=== PATIENT | female | born 1985 | race Caucasian/White ===

== ENCOUNTER 2024-06-20 10:58 | Emergency (ER) | payer OTHER, SELFPAY ==
[2024-06-20 10:59] VITALS: PULSE 76; RESP 18; TEMP 37.2; O2SAT 100; BMI 50.1
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
[2024-06-20 11:09] VITALS: BP 111/74
[2024-06-20] MEDS: LORazepam 2 mg/mL INJ 1 mL 1 MG IVP (11:16)
[2024-06-20] MEDS: morphine 4 mg/mL SDV 1 mL IVP (11:16)
[2024-06-20 11:19] LABS: Basophils % 0.2 %; Eosinophils # 0.1 10^3/uL (0.0-0.8); Eosinophils % 1.4 %; Hematocrit 41.8 % (36-47); Lymphocytes % 19.2 %; Mean Corpuscular HGB Conc 31.6 g/dL (30-55); Mean Corpuscular Hemoglobin 25.9 pg (27-33); Mean Platelet Volume 9.3 fL (7.4-10.4); Monocytes # 0.5 10^3/uL (0.2-0.9); Monocytes % 5.2 %; Neutrophils # 7.58 10^3/uL (1.8-7.7); Neutrophils % 73.6 %; Nucleated Red Blood Cells % 0 %; Platelet Count 309 10^3/cmm (157-399); White Blood Count 10.28 10^3/uL (3.29-11.43)
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
[2024-06-20] MEDS: iohexol 350 mg/mL 500 mL Btl (per mL) IV (11:32)
[2024-06-20 11:39] LABS: Anion Gap 14.1 (5-19); Blood Urea Nitrogen 11 mg/dL (6-20); Calcium 8.5 mg/dL (8.5-10.5); Carbon Dioxide 23 mmol/L (22-29); Chloride 105 mmol/L (98-107); Creatinine Clr Calc Pharmacy 115.5417; Glomerular Filtration Rate 62.4 mL/min (90-130); Glucose 94 mg/dL (65-115); Osmolality Calculated 285 mOsm/kg (285-295); Potassium 4.1 mmol/L (3.5-5.1); Sodium 138 mmol/L (136-145)
[2024-06-20 12:10] VITALS: BP 113/79; PULSE 77; O2SAT 100
[2024-06-20] MEDS: dexamethasone 10 mg/mL INJ IVP (12:28)
[2024-06-21 13:42] LABS: Glucose Point of Care 83 mg/dL (70-110)
== END 2024-06-20 12:53 | disposition home or self-care (01) ==
PROVIDERS: Emergency Provider Emergency Medicine; Family Provider Family Medicine; PCP Family Medicine
DX: Z04.1 Encounter for examination and observation following transport accident (principal)
CPT/HCPCS: 36416; 70450; 71260; 72125; 74177; 80048; 82962; 85025; 96374; 96375; 99285; J1100; J2060; J2270

== ENCOUNTER 2025-01-06 16:20 | Outpatient (CLI) | payer MEDICAID, OTHER, SELFPAY ==
[2025-01-10 13:34] LABS: Beef (27) IgE <0.10 kU/L; Beef Class 0; Cow's Milk Classification 0; Lamb (F88) IgE <0.10 kU/L; Lamb Class 0; Pork (F26) IgE <0.10 kU/L; Pork Classification 0
[2025-01-12 07:23] LABS: Galactose-alpha-1,3 IgE <0.10 kU/L (<0.10)
== END 2025-01-06 16:21 | disposition home or self-care (01) ==
LOC: LAB 16:22
PROVIDERS: Family Provider Family Medicine; PCP Family Medicine; Visit Provider Allergy & Immunology
DX: Z01.89 Encounter for other specified special examinations (principal)
CPT/HCPCS: 82785; 83520; 86003; 86008

== ENCOUNTER 2025-02-05 04:25 | Emergency (ER) | payer MEDICARE, MEDICAID, SELFPAY ==
--- OUTSIDE RECORDS SUMMARY | 2024-01-10 03:00 | XMS_ITS ---
Author Organization [facility] Address [address] [place] [address] Care Team Providers Care Bakery Manager Name Role Phone Felisha Messina APRN Primary Care Provider Harmony Kenan Colindres Unavailable [phone] Migration, Provider Unavailable Unavailable REASON FOR VISIT EMR-[facility] Encounters Encounter Location Date Provider Diagnosis Migrated_Facility 0 0 01/10/2024 Provider Migration Plan Of Treatment No Information Progress Notes * Hawa GREEN FDOB:1985 (39 yo F)Acc No.[id number]:01/10/2024 Patient: Sultana LOWE Hawa Jairon :1985 A ge:38 Y S ex:Female Address:[address] [place] [address], [address], [place] [address] Subjective: * Chief Complaints: * E MR-[facility] * * Date:
--- OUTSIDE RECORDS SUMMARY | 2024-01-11 03:00 | XMS_ITS ---
Author Organization [facility] Address [address] [place] [address] Care Team Providers Care Oakes Machine Operator Name Role Phone Felisha Messina APRN Primary Care Provider Harmony serratomikemarita Bolanos Kenan Unavailable [phone] Migration, Provider Unavailable Unavailable Allergies Allergen (clinical drug ingredient) Drug/Non Drug Allergy documented on EMR Reaction Allergy Type Onset Date Status Abilify (ARIPiprazole) Unknown Drug Allergy Active aspirin aspirin Unknown Drug Allergy Active diphenhydramine benadryl Unknown Drug Allergy A ctive gabapentin gabapentin Unknown Drug Allergy Activ e melatonin melatonin Unknown Drug Allergy Active Topamax Sprinkle (topiramate) Unknown Drug Allergy Active Zoloft (sertraline) Unknown Drug Allergy Active hydrocodone HYDROcodone Unknown Drug Allergy Act kaiden sertraline sertraline Unknown Drug Allergy Activ e REASON FOR VISIT [facility] Social History Social History Additional Details Category Social Info Options Details Migrated Social History Migrated Social History Alcoholic beverages? - No, Applying for disability? - No, Are you or is there a chance you could be - No, Currently on disability? - No, Drug or substance abuse? - No, Education - Grade School, If yes, frequency of alcoholic beverages - 1 drink per day, If yes, frequency of nonprescription drug use - marijuana, Involved in any legal proceedings or lawsuits? - No, Marital Status - single, Nonprescription drug use? - Yes, Participation in detoxification or rehabilitation - No, Smoking - 1 PPD, Smoking status (MU) - Current every day smoker, Working currently? - Yes Encounters Encounter Location Date Provider Diagnosis Migrated_Facility 0 0 01/11/2024 Provider Migration Plan Of Treatment No Information Progress Notes * Hawa GREEN FDOB:1985 (39 yo F)Acc No.[id number]:01/11/2024 Patient: Hawa TOPETE :1985 A ge:38 Y S ex:Female Address:[address] [place] [address], [address], [place] [address] Subjective: * Chief Complaints: * E MR-Perry * Family History: M igrated Family History: : Cancer, c hronic pain, D iabetes, R heumatoid arthritis.? * Social History: M igrated Social History: M igrated Social History: Alcoholic beverages? - No, A pplying for disability? - No, A re you or is there a chance you could be - No, C urrently on disability? - No, D rug or substance abuse? - No, E ducation - Grade School, I f yes, frequency of alcoholic beverages - 1 drink per day, I f yes, frequency of nonprescription drug use - marijuana, I nvolved in any legal proceedings or lawsuits? - No, M arital Status - single, N onprescription drug use? - Yes, P articipation in detoxification or rehabilitation - No, S moking - 1 PPD, S moking status (MU) - Current every day smoker, W orking currently? - Yes. * Allergies: H YDROcodone: AllergyTopamax Sprinkle (topiramate): AllergyAbilify (ARIPiprazole): AllergyZoloft (sertraline): Allergysertraline: Allergyaspirin: Allergygabapentin: Allergymelatonin: Allergybenadryl: Allergy * * Date:
--- OUTSIDE RECORDS SUMMARY | 2024-09-02 08:30 | XMS_ITS ---
Author Organization [facility] Address [address] [place] [address] Care Team Providers Care Documentation Supervisor Name Role Phone Felisha Messina APRN Primary Care Provider Harmony amaKenan Man Unavailable [phone] Lex Sanchez Unavailable [phone] Encounters Encounter Location Date Provider Diagnosis [facility] [address] [address] 09/02/2024 Lex Sanchez Plan Of Treatment No Information Progress Notes * Hawa GREEN FDOB:1985 (39 yo F)Acc No.[id number]:09/02/2024 Patient: Hawa Wills Provider: Jazmin Sanchez M.D. :1985 A ge:39 Y S ex:Female Date:09/02/2024 Address:[address] [place] [address], [address], [id number] Pcp:Felisha Messina APRN Billing Information: * Procedure Codes: * Electronic signature of Lex Sanchez MD on 02/05/2025 at 04:37 AM SHOWER DOORS AND PANELS FABRICATOR Sign off status: Pending * Provider: Jazmin Sanchez M.D. Date: 09/02/2024 Generated for Maddie thompson/Laith/eTransmitting on: 04/07/2024 04:37 AM SHOWER DOORS AND PANELS FABRICATOR
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
[2025-02-05 04:29] VITALS: BP 118/88; PULSE 86; RESP 20; TEMP 36.6; O2SAT 97; BMI 34.4
--- NOTE | 2025-02-05 04:34 | ECG_ITS ---
Tutor Assignment Test Date: 2025-02-05 Pat Name: Hawa Michael Department: Room: Gender: Female Special Events Director: : 1985 Requested By: Juliano Toribio Order Number: [id number] Archibald MD: Dave Ashley M.D. Measurements Intervals [place] Rate: 105 P: 57 ND: 143 QRS: -1 QRSD: 77 T: 52 QT: 355 QTc: 471 Interpretive Statements SINUS TACHYCARDIA WITH FREQUENT VENTRICULAR PREMATURE COMPLEXES LOW QRS VOLTAGE IN PRECORDIAL LEADS [QRS DEFLECTION < 1.0 mV IN CHEST LEADS] ABNORMAL RHYTHM ECG No previous ECG available for comparison Electronically Signed On 02-05-2025 13:49:10 EXPERIMENTAL PREFLIGHT MECHANIC by Dave Ashley M.D. [email or web address]
--- OUTSIDE RECORDS SUMMARY | 2025-02-05 04:36 | XMS_ITS | Patient Health Record ---
Author Organization [facility] Address [address] [place] [address] Care Team Providers Care Harmonica Maker Name Role Phone Felisha Messina APRN Primary Care Provider Harmony serratoKenan Man Unavailable [phone] Lex Sanchez Unavailable [phone] Allergies Allergen (clinical drug ingredient) Drug/Non Drug [...] sertraline sertraline Unknown Drug Allergy Activ e Results Component Value Reference Range Notes Echo Complete [id number] Reviewed date:07/26/2024 12:27:41 PM Interpretation: Performing Lab: Notes/Report: Reason For Referral Reason Appt 07/09/24 Cardi ac pacemaker in situ. Diagnosis 1 Presence of cardiac pacemaker (Z95.0) Referring Provider First Name Felisha Referring Provider Last Name Siddharth Referring Provider Speciality Nurse Prac breanaioner Referred Organization [facility] Referred Provider Lex Sanchez Referred Address [address],[address], Referred Provider Specialty Intervention al Cardiology Referral Priority Routine Medications Medication SIG (Take, Route, Frequency, Duration) Notes Start Date End Date Status Famotidine 40 MG Tablet as directed Oral Twice a day; Duration: 90 Not-Taking Methocarbamol 750 MG Tablet 1 tablet Orally hs Not-Takin g Metoclopramide HCl 10 MG Tablet 1 ml before meals Orally Four times a day; Duration: 30 Not-Taking Albuterol Sulfate HFA 108 (90 Base) MCG/ACT Aerosol Solution 1 puff as needed Inhalation every 4 hrs Active Montelukast Sodium 10 MG Tablet 1 tablet Orally Once a day Not-Taking Pantoprazole Sodium 40 MG Tablet Delayed Release as directed Oral Once a day; Duration: 90 Not-Taking EpiPen 2-Chase 0.3 MG/0.3ML Solution Auto-injector as directed Injection Active Flovent HFA 110 MCG/ACT Aerosol 1 puff Inhalation Twice a day Active Immunizations Vaccine Route Administration Date Status Comme nts Influenza (whole), CPT 26861 Inactive Unknown 02/20/2017 Administered Social History Tobacco Use: Social History Observation Description Date Details (start date - stop date) Never Smoker NA - NA Social History Drugs/Alcohol: Social Info Question Answer Notes Caffeine Intake: 3-4 cups per day Tobacco Use: Social Info Question Answer Notes xTobacco Use/Smoking Are you a nonsmoker Additional Details Category Social Info Options Details Drugs/Alcohol: Do you drink alcohol? No Migrated Social History Migrated Social History Alcoholic [...] every day smoker, Working currently? - Yes zzMigrated Social History Drugs/Alcohol: (Alcohol Screen (Audit-C)):Did you have a drink containing alcohol in the past year?: No, Points: 0, Interpretation: Negative ;(Caffeine):Intake: more than 4 cups per day ; Tobacco Use: (Tobacco Use/Smoking):Are you a:: never smoker ; Problems Problem Type SNOMED Code ICD Code Onset Dates Problem Status W/U Status Risk Notes Problem Dizziness and giddiness (986381541) Dizziness and giddiness (R42) Active confirmed Problem Syncope and collapse (500826356) Syncope and collapse (R55) Active confirmed Problem Cardiac pacemaker in situ (055677828) Presence of cardiac pacemaker (Z95.0) Active confirmed Problem Obstructive sleep apnea syndrome (23754190) GIOVANY (obstructive sleep apnea) (G47.33) Active confirmed Problem Ventricular premature complex (disorder) (740297339) Premature ventricular contractions (I49.3) Active confirmed Problem Morbid obesity (059257989) Morbid obesity (E66.01) Active confirmed Problem Supraventricular premature beats (04733542) Atrial contractions, premature (I49.1) Active confirmed Problem Dilated cardiomyopathy (987950346) Dilated cardiomyopathy (I42.0) Active confirmed [id number] med Description:Con gestive obstructive cardiomyopathy Problem Orthostatic hypotension (67155048) Orthostatic hypotension (I95.1) Active confirmed [id number] med Description:Pos tural orthostatic tachycardia syndrome Problem Shortness of breath (047611752) Shortness of breath (R06.02) Active confirmed [id number] Problem Essential hypertension (50510197) Essential primary hypertension (I10) Active confirmed [id number] med Description:Ess ential hypertension Vital Signs Heart Rate 88 /min 07/09/2024 Height-cm 170.18 cm 07/09/2024 Oximetry 98 % 07/09/2024 Blood pressure diastolic 72 mm Hg 07/09/2024 Weight-kg 136.62 kg 07/09/2024 Height 67.00 in 07/09/2024 Blood pressure systolic 126 mm Hg 07/09/2024 Weight 301.2 lbs 07/09/2024 BMI 47.17 kg/m2 07/09/2024 Encounters Encounter Location Date Provider Diagnosis [facility] [address] [place] [address], [place] [address] 07/09/2024 Lex Sanchez Essential primary hypertension I10 ; Encounter for pre-operative cardiovascular clearance Z01.810 ; Morbid obesity E66.01 ; GIOVANY (obstructive sleep apnea) G47.33 and SOB (shortness of breath) R06.02 [facility] [address] [place] [address], [place] [phone] 10/19/2024 Lex Sanchez [facility] [address] [place] [address], [place] [address] 09/30/2024 Lex Sanchez [facility] [address] [place] [phone] 09/16/2024 Lex Sanchez Assessments Encounter Date Diagnosis (ICD Code) Assessment Notes Treatment Notes Treatment Clinical Notes Section Notes 07/09/2024 Essential primary hypertension (ICD-10 - I10) [id number] ed Description:Susan meyer hypertension Preoperative Cardiac Clearance - Ovarian cancer surgery. She is clear to proceed from a cardiac standpoint. RCRI risk score is low. Obstructive Sleep Apnea - On CPAP therapy. Shortness of Breath - Order echocardiogr am. Obesity - Monitor for now. Follow up in 6 months. 07/09/2024 Encounter for pre-operative cardiovascular clearance (ICD-10 - Z01.810) Preoperative Cardiac Clearance - Ovarian cancer surgery. She is clear to proceed from a cardiac standpoint. RCRI risk score is low. Obstructive Sleep Apnea - On CPAP therapy. Shortness of Breath - Order echocardiogr am. Obesity - Monitor for now. Follow up in 6 months. 07/09/2024 Morbid obesity (ICD-10 - E66.01) Preoperative Cardiac Clearance - Ovarian cancer surgery. She is clear to proceed from a cardiac standpoint. RCRI risk score is low. Obstructive Sleep Apnea - On CPAP therapy. Shortness of Breath - Order echocardiogr am. Obesity - Monitor for now. Follow up in 6 months. 07/09/2024 GIOVANY (obstructive sleep apnea) (ICD-10 - G47.33) Preoperative Cardiac Clearance - Ovarian cancer surgery. She is clear to proceed from a cardiac standpoint. RCRI risk score is low. Obstructive Sleep Apnea - On CPAP therapy. Shortness of Breath - Order echocardiogr am. Obesity - Monitor for now. Follow up in 6 months. 07/09/2024 SOB (shortness of breath) (ICD-10 - R06.02) Preoperative Cardiac Clearance - Ovarian cancer surgery. She is clear to proceed from a cardiac standpoint. RCRI risk score is low. Obstructive Sleep Apnea - On CPAP therapy. Shortness of Breath - Order echocardiogr am. Obesity - Monitor for now. Follow up in 6 months. Plan Of Treatment Pending Test Test Name Order Date Electrocardiogram (EKG) - 77309 07/10/19 Insurance Providers Payer Name Payer Address Payer Phone Subscriber Number Group Number Insured Name Patient Relationship to Insured Coverage Start Date Coverage End Date [facility] [employer] [address] [place] [address] [id number] Hawa Michael Self - patient is the insured [place] Medicaid [address] [place] [address] [phone] [id number] Hawa Michael Self - patient is the insured for Life Secondary to Medicare [address] [place] [address] [phone] [id number] Hawa Michael Self - patient is the insured [place] Medicare [address] [place] [address] [id number] Hawa Michael Self - patient is the insured 8 Medical (General) History Medical History History ICD Code PTSD ANXIETY THYROID DISORDER POSTURAL ORTHOSTATIC TACHY HYPERLIPIDEMIA ASTHMA SYNCOPE Covid Vaccination: refuses to get done Surgical History Surgery Date(Month/Year) LEG SURGERY CARDIAC CATH ED-Laparoscopic cholecyst ectomy with intraoperative cholangiogram. 08.14.2024 Hospitalization History Reason Date(Month/Year) Panic attack [facility] October 03
--- OUTSIDE RECORDS SUMMARY | 2025-02-05 04:36 | XMS_ITS | Data Portability ---
Author Organization [place], [facility] Address [address] [place] [address] Care Team Providers Care General Expeditor Name Role Phone MAISHA DANIEL Referring Provider Unavailable Assessment No assessment recorded. Plan of Treatment Reminders Order Date Submit Date Provider Last Modified By Organization Details Last Modified Time Details Appointments None recorded. Lab urinalysis , dipstick 2017 018 MARISEL Not available 8 18:07:21 Referral None recorded. Procedures None recorded. Surgeries None recorded. Imaging None recorded. Medication Orders ProAir HFA 90 mcg/actuat ion aerosol inhaler 2017 018 INTERFACE [facility] [place], [address], [place], [address], 8 16:13:15 carvedilol 3.125 mg tablet 2017 018 [email or web address] [facility] [place], [address], [place], [address], 8 17:39:46 Lexapro 20 mg tablet 2017 018 INTERFACE [facility] [place], [address], [place], [address], 8 16:13:05 Zithromax Z-Chase 250 mg tablet 2017 018 [facility] [place], [address], [place], [address], 8 15:19:42 Zofran ODT 8 mg disintegra ting tablet 2016 017 [facility] [place], [address], [place], [address], 8 15:19:51 Dulcolax (bisacodyl ) 10 mg rectal suppositor y 2016 017 [facility] [place], [address], [place], [address], 8 15:21:37 Patient TargetsNo targets recorded. Patient Instructions Encounter Date Encounter Id Patient Instructions Last Modified By Organization Details Last Modified Time 11/11/2016 [id number] constipation: ca re instructions Not available 11/11/2016 11:55:35 will cont to follow. warned pt that if she cont to take zofran it will only worsen her constipation. will give suppositories for constipation. safe in . will cont to follow and pt to call industrial relations worker phone before going to ED. WIll send records to OB. Not available 11/11/2016 14:19:06 11/26/2016 [id number] constipation: ca re instructions Not available 11/26/2016 17:44:03 WIll cont to follow. urged pt to call clinic before going to ER. Cautioned on use of zofran in . OB prescribed med and is also aware. Not available 11/26/2016 14:12:06 12/27/2016 [id number] extreme nausea a nd vomiting in : care instructions Not available 12/27/2016 13:16:39 high-risk : care instructions Not available 12/27/2016 13:16:39 will cont to follow. pt to call clinic before going to ER for anything. Pt aware and she/boyfriend both received cards with industrial relations worker phone number written. Cont meds and will monitor. I have concerns about pt and her ability to care for a Not available 12/27/2016 17:07:49 05/07/2017 [id number] high-risk : care instructions Not available 05/07/2017 21:48:30 bronchitis: care instructions Not available 05/07/2017 16:01:31 will treat bronchitis. Pt and boyfriend are low IQ and childish in behavior. Pt counseled numerous times on abusing ER and to call industrial relations worker phone prior to going to ER. Unfortunately no cooperation from them. Not available 05/07/2017 21:48:30 07/24/2017 [id number] controlling your asthma: care instructions Not available 07/24/2017 16:11:21 learning about asthma Not available 07/24/2017 16:11:21 biceps tendiniti s: exercises Not available 07/24/2017 16:11:21 When You Want to Lose Weight: Care Instructions Not available 07/24/2017 16:11:21 Reason for Referral None Reported. Results Created Date Observation Date Name Description Value Unit Range Abnormal Flag Note LastModifiedBy Organization Detail LastModifiedTime 12/26/19 17 12/23/2016 XR, chest No observ ation record ed. [address], [address], 12/25/2016 22:28:14 Result Notes None recorded. Problems Name Problem SNOMED Code Status Onset Date Resolution Date Notes Provider Name and Address Organization Details Recorded Time Candidal vulvovaginitis [id number] [place], [address], [place] - Maisha Hemal 5 12:36:09 Backache 221583970 [place], [address], [place] - Maisha Hemal 6 09:37:23 Bronchitis 92232691 [place], [address], [place] - Maisha [place] 5 12:36:09 Right lower quadrant pain 276712501 [place], [address], [place] - Maisha [place] 5 22:32:34 Tachycardia 5766491 [place], [address], [place] - Maisha Hemal 5 22:32:34 Vaginitis and vulvovaginitis [place], [address], [place] - Maisha Hemal 6 13:44:41 Edema of lower extremity 905670261 [place], [address], [place] - Maisha Hemal 6 09:37:23 Postural orthostatic tachycardia syndrome 778390604 [place], [address], [place] - Maisha [place] 6 09:37:23 Generalized anxiety disorder 64577472 [place], [address], [place] - Maisha Hemal 6 17:07:05 Macromastia 204135412 [place], [address], [place] - Maisha [place] 6 09:37:23 Palpitations 53127258 [place], [address], [place] - Maisha Hemal 5 10:25:02 Hypothyroidism 64904871 Active Eli Lo null[place] - Maisha Hemal 6 16:39:24 Depressive disorder 27450296 [place], [address], [place] - Maisha [place] 5 21:16:01 Problem Notes None recorded. Procedures Surgical History Date Name Laterality Status Provider Name and Address Organization Details Recorded Time Orthopedic Surgery completed Eli ESCALERA - Maisha Daniel 01/06/2014 14:54:06 Imaging Results None recorded. Procedure Notes None recorded. Medical Equipment None Reported. Allergies Allergen ID Allergen Name Allergen Category Reaction Reaction Severity Criticality Documentation Date Start Date Code Code System Note Provider Name and Address Organization Details Recorded Time 65188 Vaccine product containin g only influenza virus antigen (medicina l product) medicatio n Not available Not available Not available 03/30/2015 03142 57290 105 SNOMED [place] 6 15:56:18 57017 egg extract food,medi cation Not available Not available Not available 01/16/2016 14573 15 RxNorm JW Jarvis 6 11:00:59 1728 gabapenti n medicatio n Not available Not available Not available 01/06/2014 48258 RxNorm [place]W [place] 4 14:54:06 1729 hydrocodo ne Not available Not available Not available Not available 01/06/2014 5489 RxNorm [place]W [place] 4 14:54:06 1730 Topamax medicatio n Not available Not available Not available 01/06/2014 18407 3 RxNorm JW Jarvis 4 14:54:06 1731 sertralin e medicatio n Not available Not available Not available 01/06/2014 43116 RxNorm JW Jarvis 4 14:54:06 Medications Name Sig Start Date Stop Date Status Note LastModified by Organization Details LastModified Time cyclobenzap rine 10 mg tablet 07/24 completed Not Available Not Available Not Available amoxicillin 500 mg capsule 05/07 completed Not Available Not Available Not Available furosemide 40 mg tablet Take 1 tablet every day by oral route. 08/08 completed Not Available Not Available Not Available fluconazole 100 mg tablet Take 1 tablet every day by oral route. active Not Available Not Available No t Available venlafaxine ER 75 mg capsule,ext ended release 24 hr Take 1 capsule every day by oral route for 30 days. 02/05 completed Not Available Not Available Not Available ropinirole 1 mg tablet Take 1 tablet every day by oral route at bedtime. 06/03 completed Not Available Not Available Not Available ketoconazol e 2 % shampoo APPLY TO THE AFFECTED AREA(S), LATHER, LEAVE IN PLACE FOR 5 MINUTES, AND THEN RINSE OFF WITH WATER BY TOPICAL ROUTE ONCE DAILY 06/03 completed Not Available Not Available Not Available cetirizine 10 mg tablet Take 1 tablet every day by oral route. 07/24 completed Not Available Not Available Not Available azithromyci n 250 mg tablet Take 1 tablet every day by oral route as directed. 07/24 completed Not Available Not Available Not Available metoprolol tartrate 100 mg tablet Take 1 tablet twice a day by oral route. 09/27 completed Not Available Not Available Not Available fluconazole 150 mg tablet Take 1 tablet every day by oral route for 1 day. 09/27 completed Not Available Not Available Not Available Lotrisone 1 %-0.05 % topical cream APPLY TO THE AFFECTED AND SURROUNDI NG AREAS OF SKIN BY TOPICAL ROUTE 2 TIMES PER DAY IN THE MORNING AND EVENING FOR 2 WEEKS 09/27 completed Not Available Not Available Not Available sumatriptan 100 mg tablet Take 1 tablet every day by oral route as needed. 03/21 completed Not Available Not Available Not Available Keflex 500 mg capsule Take 1 capsule 3 times a day by oral route for 7 days. 12/04 completed Not Available Not Available Not Available meloxicam 15 mg tablet active Not Available Not Available Not Available ondansetron HCl 4 mg tablet 11/26 completed Not Available Not Available Not Available betamethaso ne, augmented 0.05 % topical cream 09/27 completed Not Available Not Available Not Available atenolol 25 mg tablet Take 1 tablet by oral route for 30 days. active Not Available Not Available No t Available venlafaxine ER 150 mg capsule,ext ended release 24 hr 12/04 completed Not Available Not Available Not Available metronidazo le 500 mg tablet 05/07 completed Not Available Not Available Not Available ciprofloxac in 250 mg tablet 12/27 completed Not Available Not Available Not Available prochlorper azine maleate 10 mg tablet active Not Available Not Available No t Available ciprofloxac in 500 mg tablet active Not Available Not Available Not Available sulfamethox azole 800 mg-trimetho prim 160 mg tablet active Not Available Not Available Not Available carvedilol 3.125 mg tablet Take 1 tablet twice a day by oral route as directed for 30 days. 2017 active Not Available Not Available Not Avai lable ondansetron 8 mg disintegrat ing tablet Place 1 tablet every 8 hours by transling ual route for 2 days. 07/24 completed Not Available Not Available Not Available levothyroxi ne 25 mcg tablet active Not Available Not Available Not Available dexamethaso ne 0.5 mg/5 mL oral elixir active Not Available Not Available Not Available Dulcolax (bisacodyl) 10 mg rectal suppository Insert 1 supposito ry every day by rectal route. 07/24 completed Not Available Not Available Not Available zonisamide 100 mg capsule active Not Available Not Available Not Available Tessalon Perles 100 mg capsule Take 1 capsule 3 times a day by oral route as needed. 06/03 completed Not Available Not Available Not Available famotidine 20 mg tablet Take 1 tablet twice a day by oral route. 06/03 completed Not Available Not Available Not Available lorazepam 0.5 mg tablet active Not Available Not Available Not Available Nitrostat 0.[address] 1 tablet as needed by sublingua l route. active Not Available Not Available No t Available trazodone 100 mg tablet Take 1 tablet every day by oral route at bedtime. 06/03 completed Not Available Not Available Not Available rizatriptan 10 mg disintegrat ing tablet Take 1 tablet every day by oral route as needed. 07/24 completed Not Available Not Available Not Available levothyroxi ne 50 mcg tablet Take 1 tablet every day by oral route. 08/08 completed Not Available Not Available Not Available trazodone 150 mg tablet active Not Available Not Available Not Available nitrofurant oin macrocrysta l 100 mg capsule 11/11 completed Not Available Not Available Not Available ranitidine 150 mg tablet active Not Available Not Available Not Available lisinopril 10 mg tablet active Not Available Not Available Not Available metoprolol tartrate 50 mg tablet Take 1.5 tablets twice a day by oral route. 06/18 completed Not Available Not Available Not Available folic acid 1 mg tablet 07/24 completed Not Available Not Available Not Available midodrine 2.5 mg tablet Take 1 tablet every day by oral route. active Not Available Not Available No t Available furosemide 20 mg tablet TAKE ONE TABLET BY MOUTH ONCE DAILY 12/19 completed Not Available Not Available Not Available gabapentin 100 mg capsule active Not Available Not Available Not Available polyethylen e glycol 3350 17 gram/dose oral powder active Not Available Not Available Not Available cefdinir 300 mg capsule 07/24 completed Not Available Not Available Not Available clotrimazol e 1 % topical cream 09/27 completed Not Available Not Available Not Available atenolol 50 mg tablet TAKE ONE TABLET BY MOUTH ONCE DAILY 12/04 completed Not Available Not Available Not Available amoxicillin 875 mg-potassiu m clavulanate 125 mg tablet Take 1 tablet every 12 hours by oral route for 7 days. 01/15 completed Not Available Not Available Not Available Ventolin HFA 90 mcg/actuati on aerosol inhaler Inhale 2 puffs every 4 hours by inhalatio n route as needed. active Not Available Not Available No t Available escitalopra m 20 mg tablet Take 1 tablet every day by oral route as directed for 30 days. 2017 active Not Available Not Available Not Avai lable Lexapro 10 mg tablet Take 1 tablet every day by oral route. 2017 active Not Available Not Available Not Avai lable Mucinex DM 60 mg-1,200 mg tablet,exte nded release 12 hr Take 1 tablet twice a day by oral route. 01/15 completed Not Available Not Available Not Available EpiPen 2-Chase 0.3 mg/0.3 mL injection, auto-inject or Take 1 auto every day by injection route as needed. active Not Available Not Available No t Available Linzess 145 mcg capsule active Not Available Not Available Not Available PrePlus 27 mg iron-1 mg tablet 07/24 completed Not Available Not Available Not Available Vitals Date Recorded Body height Body mass index (BMI) Body weight Heart rate Oxygen saturation Body temperature Systolic And Diastolic Provider Name and Address Organization Details Last Updated DateTime 8 170.18 cm 48.2 kg/m2 469531. 45 g 107 /min 99 % 98.3 [degF] 138/97 mm[Hg] Kya Daniel 8 14:50:48 Date Recorded Body height Body mass index (BMI) Body weight Body temperature Heart rate Oxygen saturation Systolic And Diastolic Provider Name and Address Organization Details Last Updated DateTime 8 170.18 cm 45.9 kg/m2 470714. 56 g 98.1 [degF] 85 /min 98 % 113/78 mm[Hg] Eli Goldmanibner 8 15:20:04 Date Recorded Body height Body mass index (BMI) Body weight Body temperature Heart rate Oxygen saturation Systolic And Diastolic Provider Name and Address Organization Details Last Updated DateTime 7 170.18 cm 51.2 kg/m2 346173. 7 g 98.2 [degF] 100 /min 99 % 121/83 mm[Hg] Eli Goldmanibner 7 11:23:11 Date Recorded Body height Body mass index (BMI) Body weight Body temperature Heart rate Oxygen saturation Systolic And Diastolic Provider Name and Address Organization Details Last Updated DateTime 7 170.18 cm 51.2 kg/m2 866449. 7 g 97.9 [degF] 87 /min 99 % 135/86 mm[Hg] Eli Daniel 7 10:57:33 Date Recorded Body temperature Heart rate Oxygen saturation Systolic And Diastolic Provider Name and Address Organization Details Last Updated DateTime 12/27/2016 98.6 [degF] 103 /min 98 % 123/84 mm[Hg] Eli Daniel 7 12:09:12 Date Recorded Body height Body mass index (BMI) Body weight Provider Name and Address Organization Details Last Updated DateTime 12/27/2016 170.18 cm 51 kg/m2 876313.39 g Yolanda Daniel 12/27/2016 12:02:07 Social History Question Answer Notes LastModified by Organizat ion Details LastModified Time Tobacco Smoking Status Never Smoker Not Available [employer] 01/18/2020 03:38:59 How Many Years Have You Consumed Alcohol? 0 [id number] Information not available 01/18/2020 What Is Your Level Of Caffeine Consumption? Moderate [id number] Information not available 01/18/2020 How Much Tobacco Do You Chew? None [id number] Information not available 01/18/2020 What Type Of Diet Are You Following? REGULAR [id number] Information not available 01/18/2020 How Many Days In The Past Year Have You Had A Heavy Drinking Consumption (4+ Female, 5+ Male)? 0 Information not available 03/21/2016 Are There Any Guns Present In Your Home? No [id number] Information not available 01/18/2020 Live Alone Or With Others? Alone Information not available 01/12/2015 Marital Status Single Informatio n not available 01/06/2014 What Was The Date Of Your Most Recent Tobacco Screening? 12/27/2016 [id number] Information not available 01/18/2020 How Many Children Do You Have? 0 [id number] Information not available 01/18/2020 Performs Monthly Self-breast Exam? No Information not available 01/06/2014 Seat Belts Used Routinely Yes Information not available 01/06/2014 Smoke Alarm In Home Yes Information not available 01/06/2014 Are You Passively Exposed To Smoke? Yes Information not available 01/12/2015 How Much Tobacco Do You Smoke? No [id number] Information not available 01/18/2020 Do You Use Sunscreen Routinely? No [id number] Information not available 01/18/2020 Do You Have Difficulty Walking Or Climbing Stairs? No [id number] Information not available 01/18/2020 Sex: Unknown Functional Status Question Answer Note LastModified by Organizat ion Details LastModified Time What is your level of alcohol consumption? None [id number] Information not available 01/18/2020 Are you currently employed? Yes [id number] Information not available 01/18/2020 Urinary incontinence assessment performed? Yes Information not available 03/21/2016 Do you have difficulty doing errands alone? No [id number] Information not available 01/18/2020 Are you able to care for yourself independently? Yes [id number] Information not available 01/18/2020 Do you have difficulty dressing, bathing, grooming, or toileting? No [id number] Information not available 01/18/2020 Mental Status Question Answer Note LastModified by Organization D etails LastModified Time Do you have difficulty concentrating, remembering or making decisions? No [id number] Information no t available 01/18/2020 Family History Relationship Description Onset Age of this Age Resolved Age Notes LastModified by Organization Details LastModified Time Mother Disease of liver [email or web address] Not available 2013 14:54:06 Mother Heart disease [email or web address] Not available 2013 14:54:06 Father Heart disease [email or web address] Not available 2013 14:54:06 Medical History Condition Response Heart Problems Y Gynecological History Statement/Question Response Abnormal Pap N Flow Moderate Menses Monthly Y Duration of Flow (days) 4 Date of Last Pap Smear Age at Menarche 14 Current Control Method None LMP Approximate Age at First Child Obstetrics History GPAL:G 0 P 0 0 0 0 Past Encounters Encounter ID Performer Location Encounter Start Date Encounter Closed Date Diagnosis/Indication Diagnosis SNOMED-CT Code Diagnosis ICD10 Code Diagnosis IMO Codes Diagnosis Note [id number] Maisha Daniel MD Main Office [address] [place] [id number] 01/06/2014 14:12:32 01/06/2014 15:23:55 Palpitations 10921610 Hypothyroidism 13457263 Depressive disorder 30871056 [id number] Maisha Daniel MD Main Office [address] [place] [id number] 1 02/03/2014 09:52:22 02/03/2014 11:23:06 Palpitations 81756684 cont meds and manage with cardiology Hypothyroidism 07639639 re fill med and check next apt Depressive disorder 64589247 will follow. [id number] Maisha Daniel MD Main Office [address] [place] [id number] 04/04/2014 10:57:35 04/04/2014 12:48:03 Palpitations 77846471 will cont meds for now. Hypothyroidism 75386244 Pt wants to stop thyroid med. I agreed to stopping med for 1-2 months and rechecking levels. Will follow Depressive disorder 42996184 will follow. Candidal vulvovaginitis 58412999 [id number] Maisha Daniel MD Main Office [address] [place] [id number] 1 07/12/2014 09:35:37 07/12/2014 10:37:10 Hypothyroidism 29780372 tsh and free t4 Palpitations 04835019 will cont meds for now. Backache 208530186 [id number] Maisha Daniel MD Main Office [address] [place] [id number] 01/12/2015 11:24:09 01/12/2015 12:37:27 Bronchitis 81918976 J40 Candidal vulvovaginitis 31458324 B37.3 [id number] Maisha Daniel MD Main Office [address] [place] [id number] 03/13/2015 12:38:25 03/13/2015 13:05:45 Right lower quadrant pain 068074848 R10.31 reviewed ext records and on exam i will order ct abd pelvis. pt may have ovarian cyst but could also be appendicit is. will follow Tachycardia 7233423 R00. 0 cont metoprolol . pt hesitant to take med. pt with learning obstacle [place]. [id number] Maisha Daniel MD Main Office [address] [place] [id number] 05/16/2015 10:04:23 05/16/2015 11:25:08 Vaginitis and vulvovaginitis 716855033 N77.1 pt prefers female provider for pelvic exam. will set up referral and treat in the meantime [id number] Maisha Daniel MD Main Office [address] [place] [id number] 08/21/2015 16:08:53 08/21/2015 17:09:21 Edema of lower extremity 666283703 R60.0 Postural o rthostatic tachycardia syndrome 400571075 I95.1 Generalize d anxiety disorder 98183852 F41.1 [id number] Maisha Daniel MD Main Office [address] [place] [id number] 1 09/04/2015 08:49:33 09/04/2015 09:43:49 Adult health examination 691912692 Z00.00 cbc,cmp,fl p,tsh,ua Postural o rthostatic tachycardia syndrome 886685376 I95.1 Hypothyroidism 75266951 E03.9 Edema of l ower extremity 552676007 R60.0 Backache 887685822 M54.9 Macromastia 965824108 N6 2 [id number] Maisha Daniel MD Main Office [address] [place] [id number] 10/02/2015 14:00:05 10/02/2015 15:27:54 Folliculitis 62285311 L73.9 Allergic r eaction to bee sting 314834849 T78.40XD [id number] aMisha Daniel MD Main Office [facility] [place] [address] 12/05/2015 09:21:20 12/05/2015 10:23:44 Hypothyroidism 79837322 E03.9 Postural o rthostatic tachycardia syndrome 552703313 I95.1 Restless l egs syndrome 40514061 G25.81 [id number] Maisha Daniel MD Main Office [facility] [place] [address] 12/28/2015 10:06:32 12/28/2015 10:49:39 Bronchitis 51365054 J40 Vasovagal syncope 307876 005 R55 Intellectu al functioning disability 040218144 F79 Insomnia 906757072 G47.0 0 [id number] Maisha Daniel MD Main Office [facility] [place] [id number] 01/16/2016 10:45:57 01/16/2016 11:42:07 Allergic reaction 256413806 T78.40XA Postural o rthostatic tachycardia syndrome 434204576 I95.1 Depressive disorder 3548 9007 F32.9 will follow. Edema of l ower extremity 278258626 R60.0 Hypothyroidism 53715670 E03.9 Restless l egs syndrome 80012699 G25.81 Insomnia 348936922 G47.0 0 [id number] Maisha Daniel MD Main Office [facility] [place] [id number] 02/21/2016 10:09:24 02/21/2016 11:06:36 Postural orthostatic tachycardia syndrome 369627126 I95.1 Depressive disorder 3548 9007 F32.9 will follow. Morbid obesity 281690810 E66.01 Migraine 36431619 G43.90 9 [id number] Maisha Daniel MD Main Office [facility] [place] [id number] 1 03/21/2016 10:22:22 03/21/2016 11:39:50 Migraine 35807085 G43.909 Postural o rthostatic tachycardia syndrome 613051716 I95.1 [id number] Maisha Daniel MD Main Office [facility] [place] [id number] 1 04/22/2016 09:57:56 04/22/2016 12:05:42 Bronchitis 86005475 J40 Seborrheic dermatitis of scalp 708220718 L21.0 [id number] Maisha Daniel MD Main Office [facility] [place] [id number] 1 06/03/2016 08:55:06 06/03/2016 09:45:52 Postural orthostatic tachycardia syndrome 266091480 I95.1 Hypothyroidism 76432676 E03.9 Restless l egs syndrome 03512329 G25.81 stop trazadone and requip [id number] Maisha Daniel MD Main Office [facility] [place] [id number] 08/08/2016 10:03:55 08/08/2016 11:33:17 Postural orthostatic tachycardia syndrome 402342045 I95.1 Depressive disorder 3548 9007 F32.9 Generalize d anxiety disorder 65677723 F41.1 Morbid obesity 217395716 E66.01 [id number] Maisha Daniel MD Main Office [facility] [place] [id number] 1 08/27/2016 09:11:30 08/27/2016 09:59:12 Contact dermatitis caused by urushiol from [facility] luc 841609005 L25.5 Candidiasis of vagina 72 298930 B37.3 Postural o rthostatic tachycardia syndrome 945374620 I95.1 [id number] Maisha Daniel MD Main Office [facility] [place] [id number] 1 09/27/2016 10:08:43 09/27/2016 11:35:05 Intrauterine 32431269 Z34.90 Mental retardation 20454 005 F79 Postural o rthostatic tachycardia syndrome 742420823 I95.1 [id number] Maisha Daniel MD Main Office [facility] [place] [id number] 11/11/2016 11:13:50 11/11/2016 11:58:49 Hyperemesis [id number] R11.10 Constipation 36105386 K5 9.00 [id number] Maisha Daniel MD Main Office [facility] [place]ILL [address] 1 11/26/2016 10:48:20 11/26/2016 12:13:59 Hyperemesis [id number] R11.10 Constipation [id number] K5 9.00 [id number] Maisha Daniel MD Main Office [facility] [place] [address]432 1 12/27/2016 11:29:07 12/27/2016 13:15:58 Hyperemesis gravidarum 71014446 O21.0 Postural o rthostatic tachycardia syndrome 114647328 I95.1 High risk 4720 0007 O09.92 [id number] Maisha Daniel MD Main Office [facility] [place] [address] 05/07/2017 14:37:42 05/07/2017 16:07:42 Bronchitis 29623338 J40 High risk 4720 0007 O09.92 [id number] Maisha Daniel MD Main Office [facility] [place] [address] 1 07/24/2017 15:16:32 07/24/2017 16:16:08 Postural orthostatic tachycardia syndrome 058899792 I95.1 Cardiomyopathy 19962618 I42.9 Biceps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
--- OUTSIDE RECORDS SUMMARY | 2025-02-05 04:36 | XMS_ITS | Encounter Summary ---
Author Organization [facility] Address [address] [place] [address] Care Team Providers Care Patrol Sergeant Sheriff'[employer] Name Role Phone Unavailable Primary Care Provider Unavailabl e Reason for Referral * EVAL & TREAT (Routine) - Authorized Specialty Diagnoses / Procedures Referred By Adele rankin Referred To Contact Obstetrics and Gynecology Diagnoses Benign neoplasm of left ovary Neida Alfaro MD [address] [place] [address] [address] [place], [place] [id number] Phone: tel:[phone] fax: [facility] [address] [place] [address], [place] [address] Phone: tel: fax: Referral ID Status Reason Start Date Expiration Date Visits Requested Visits Authorized [id number] Authorized Specialty Services Required 07/08/2024 07/08/2025 1 1 Question Answer Is this OB or UNCRATER? UNCRATER Additional Details: Well Woman/Preventative Health Encounter Details Date Type Department Care Team (Latest Contact Info) Description 07/08/2024 Order Director [place] [address] Neida Alfaro MD [address] [place] [address] [address] [place], [place] [phone] Benign neoplasm of left ovary (Primary Dx) Social History Tobacco Use Types Packs/Day Years Used Date Smoking Tobacco: Never Smokeless Tobacco: Never Alcohol Use Standard Drinks/Week Comments No 0 (1 standard drink = 0.6 oz pur e alcohol) Comments Unknown Sex and Gender Information Value Date Recorded Sex Assigned at Not on file Legal Sex Female 5:42 PM CDT Gender Identity Not on file Sexual Orientation Not on file documented as of this encounter Plan of Treatment Scheduled Referrals Name Type Priority Associated Diagnoses Order Schedule Ambulatory Referral to Skilled Nursing Facilities Professional Outpatient Referral Routine Benign neoplasm of left ovary 1 Occurrences starting 07/08/2024 until 07/08/2025 documented as of this encounter Visit Diagnoses Diagnosis Benign neoplasm of left ovary- Primary documented in this encounter
--- OUTSIDE RECORDS SUMMARY | 2025-02-05 04:36 | XMS_ITS | Encounter Summary ---
Author Organization [facility] Address [address] [place] [address] Care Team Providers Care Administrative Office Assistant Name Role Phone Unavailable Primary Care Provider Unavailabl e Encounter Details Date Type Department Care Team (Late st Contact Info) Description 01/14/2022 [place] [address] Yoko Tan MD [address] [place] [address] Social History Tobacco Use Types Packs/Day Years [...] as of this encounter Plan of Treatment Not on file documented as of this encounter Visit Diagnoses Not on filedocumented in this encounter
--- OUTSIDE RECORDS SUMMARY | 2025-02-05 04:36 | XMS_ITS | Encounter Summary ---
Author Organization [facility] Address [address] [place] [address] Care Team Providers Care Radio Operator Name Role Phone Unavailable Primary Care Provider Unavailabl e Encounter Details Date Type Department Care Team (Late st Contact Info) Description 11/28/2022 Order [place] [address] Yoko Tan MD [address] [place] [address] Social History Tobacco Use Types Packs/Day Years [...]
--- OUTSIDE RECORDS SUMMARY | 2025-02-05 04:36 | XMS_ITS | Data Portability ---
Author Organization [facility], [facility] Address [address] [place] [address] Assessment No assessment recorded. Plan of Treatment Reminders Order Date Submit Date Provider Last Modified By Organization Details Last Modified Time Details Appointments None recorded. Lab HbA1c (hemoglobin A1c), blood 2024 025 [facility] [address] [place], [address], 5 17:18:05 insulin, serum 2024 025 [facility] [address] [place], [address], 5 17:23:01 C-peptide, serum 2024 025 [facility] [address] [place], [address], 5 17:17:48 iron + total iron-bindin g capacity (TIBC), serum 2024 025 MAGDA [facility] [address] [place], [address], 5 17:20:31 CBC w/ auto diff 2024 025 MAG[facility] [address] [place], [address], 5 17:20:34 lipid panel, serum 2024 025 MAG[facility] [address] [place], [address], 5 17:20:31 vitamin D, 25-hydroxy, total, serum 2024 025 [facility] [address] [place], [address], 5 17:20:33 unlisted lab - MARQUISE superset w/rfx (ena9) 2024 025 [facility] [address] [place], [address], 5 17:20:29 ESR (erythrocyt e sedimentati on rate), blood 2024 025 [place] [facility] [address] [place], [address], 5 17:20:35 C-reactive protein, quantitativ e, serum or plasma 2024 025 [place] [facility] [address] [place], [address], 5 17:20:32 rf (rheumatoid factor), serum 2024 025 [facility] [address] [place], [address], 5 17:20:33 CMP, serum or plasma 2024 025 [place] [facility] [address] [place], [address], 5 17:20:30 Referral None recorded. Procedures None recorded. Surgeries None recorded. Imaging None recorded. Medication Orders Bactrim DS 800 mg-160 mg tablet 2024 025 [facility], [address] [place], [address], 16:04:07 diclofenac sodium 75 mg tablet,vandana yed release 2024 025 [facility], [address] [place], [address], 12:30:28 Patient TargetsNo targets recorded. Patient Instructions Encounter Date Encounter Id Patient Instructions Last Modified By Organization Details Last Modified Time 04/22/2024 [id number] Patient discharged to self to home in stable condition. Follow up instructions given. [email or web address] Not available 04/23/2024 13:55:09 05/06/2024 [id number] Patient discharged to self to home in stable condition. Follow up instructions given. [email or web address] Not available 05/06/2024 14:16:12 06/30/2024 [id number] Patient discharged to self to home in stable condition. Follow up instructions given. [email or web address] Not available 07/02/2024 13:41:01 09/03/2024 [id number] Patient discharged to self to home in stable condition. Follow up instructions given. Not available 09/03/2024 15:16:24 10/26/2024 [id number] Patient discharged to self to home in stable condition. Follow up instructions given. [email or web address] Not available 10/26/2024 10:47:46 Reason for Referral None Reported. Results Created Date Observation Date Name Description Value Unit Range Abnormal Flag Note LastModifiedBy Organization Detail LastModifiedTime 10/27/1910/27/2024 MARQUISE SUPER SET W/RFX (ENA9 ) anti-nuclear antibodies Positi ve negati ve abnormal Not Available [facility] [address] [place], [address], 10/29/2024 17:20:29 10/27/19 25 10/27/2024 MARQUISE SUPER SET W/RFX (ENA9 ) MARQUISE patterns (reported titer) See Below Not Available [facility] [address], [place], [address], 10/29/2024 17:20:29 10/27/19 25 10/27/2024 MARQUISE SUPER SET W/RFX (ENA9 ) dense fine speckled 1:320 negati ve abnormal Comme nt for ANTI NUCLE AR ABS Scree n and titer perfo rmed by HEp-2 immun ofluo resce nce. Not Available [facility] [address], [place], [address], 10/29/2024 17:20:29 10/27/19 25 10/27/2024 COMP METAB OLIC PANEL sodium 137 mEq/L 135-14 6 Not Available [facility] [address] [place], [address], 10/29/2024 17:20:30 10/27/19 25 10/27/2024 COMP METAB OLIC PANEL potassium 5.1 mEq/L 3.5-5. 4 Not Available [facility] [address] [place], [address], 10/29/2024 17:20:30 10/27/19 25 10/27/2024 COMP METAB OLIC PANEL chloride 103 mEq/L 95-107 Not Available [facility] [address] [place], [address], 10/29/2024 17:20:30 10/27/19 25 10/27/2024 COMP METAB OLIC PANEL carbon dioxide 21 mEq/L 19-31 Not Available [facility] [address] [place], [address], 10/29/2024 17:20:30 10/27/19 25 10/27/2024 COMP METAB OLIC PANEL anion gap 13 mEq/L 7-23 Not Available [facility] [address] [place], [address], 10/29/2024 17:20:30 10/27/19 25 10/27/2024 COMP METAB OLIC PANEL glucose non-fasting 92 mg/dL 70-139 Not Available [facility] [address] [place], [address], 10/29/2024 17:20:30 10/27/19 25 10/27/2024 COMP METAB OLIC PANEL urea nitrogen (BUN) 13 mg/dL 6-20 Not Available [facility] [address] [place], [address], 10/29/2024 17:20:30 10/27/19 25 10/27/2024 COMP METAB OLIC PANEL creatinine 1.08 mg/dL 0.60-1 .30 Not Available [facility] [address] [place], [address], 10/29/2024 17:20:30 10/27/19 25 10/27/2024 COMP METAB OLIC PANEL 2020 CKD-epi eGFR-cr 68 mL/mi n/1.7 3m'2 >59 Not Available [facility] [address] [place], [address], 10/29/2024 17:20:30 10/27/19 25 10/27/2024 COMP METAB OLIC PANEL BUN/creatini ne ratio 12 ratio Not Available [facility] [address] [place], [address], 10/29/2024 17:20:30 10/27/19 25 10/27/2024 COMP METAB OLIC PANEL calcium total 9.0 mg/dL 8.5-10 .5 Not Available [facility] [address] [place], [address], 10/29/2024 17:20:30 10/27/19 25 10/27/2024 COMP METAB OLIC PANEL protein total 6.8 g/dL 6.1-8. 3 Not Available [facility] [address] [place], [address], 10/29/2024 17:20:30 10/27/19 25 10/27/2024 COMP METAB OLIC PANEL albumin 4.0 g/dL 3.5-5. 2 Not Available [facility] [address] [place], [address], 10/29/2024 17:20:30 10/27/19 25 10/27/2024 COMP METAB OLIC PANEL globulin 2.8 g/dL 1.7-4. 3 Not Available [facility] [address] [place], [address], 10/29/2024 17:20:30 10/27/19 25 10/27/2024 COMP METAB OLIC PANEL A/G ratio 1.4 ratio 0.9-2. 8 Not Available [facility] [address] [place], [address], 10/29/2024 17:20:30 10/27/19 25 10/27/2024 COMP METAB OLIC PANEL bilirubin total 0.4 mg/dL 0.0-1. 2 Not Available [facility] [address] [place], [address], 10/29/2024 17:20:30 10/27/19 25 10/27/2024 COMP METAB OLIC PANEL alkaline phosphatase 80 U/L 40-112 Not Available [facility] [address] [place], [address], 10/29/2024 17:20:30 10/27/19 25 10/27/2024 COMP METAB OLIC PANEL AST (SGOT) 15 U/L 9-40 Not Available [facility] [address], [place], [address], 10/29/2024 17:20:30 10/27/19 25 10/27/2024 COMP METAB OLIC PANEL ALT (SGPT) 18 U/L 5-40 Not Available [facility] [address], [place], [address], 10/29/2024 17:20:30 10/27/19 25 10/27/2024 LIPID PROFI LE cholesterol 89 mg/dL <200 Not Available [facility] [address], [place], [address], 10/29/2024 17:20:31 10/27/19 25 10/27/2024 LIPID PROFI LE triglyceride s 62 mg/dL 0-149 Not Available [facility] [address] [place], [address], 10/29/2024 17:20:31 10/27/19 25 10/27/2024 LIPID PROFI LE HDL cholesterol 47 mg/dL >39 Not Available [facility] [address] [place], [address], 10/29/2024 17:20:31 10/27/19 25 10/27/2024 LIPID PROFI LE LDL cholesterol 28 mg/dL <100 Not Available [facility] [address] [place], [address], 10/29/2024 17:20:31 10/27/19 25 10/27/2024 LIPID PROFI LE non HDL cholesterol 42 mg/dL <130 Not Available [facility] [address] [place], [address], 10/29/2024 17:20:31 10/27/19 25 10/27/2024 LIPID PROFI LE coronary risk ratio 1.89 <4.44 Comme nt for LIPID PROFI LE Non-H DL Kaylin stero l is a jad r indic ator for cardi ovasc ular risk than LDL-C holes terol for patie nts who have incre ased trigl yceri radha or are non-f astin g. Non-H DL Kaylin stero l: < 130 mg/dL (Opti mal) < 160 mg/dL (Near Optim al/Ab ove Optim al) LDL Kaylin stero l: < 100 mg/dL (Opti mal) < 130 mg/dL (Near Optim al/Ab ove Optim al) Coron jenna Risk Ratio : Carroll ge for femal es < 4.44 Not Available [facility] [address] [place], [address], 10/29/2024 17:20:31 10/27/19 25 10/27/2024 IRON AND TIBC iron 41 ug/dL 37-145 Not Available [facility] [address] [place], [address], 10/29/2024 17:20:31 10/27/19 25 10/27/2024 IRON AND TIBC total iron binding 338 ug/dL 250-40 0 Not Available [facility] [address] [place], [address], 10/29/2024 17:20:31 10/27/19 25 10/27/2024 IRON AND TIBC % saturation 12 % 20-50 low Not Available [facility] [address] [place], [address], 10/29/2024 17:20:31 10/27/19 25 10/27/2024 C-KANWAL CTIVE PROTE IN C-reactive protein 1.7 mg/dL <0.5 high Not Available [facility] [address] [facility] [place], [address], 10/29/2024 17:20:32 10/27/19 25 10/27/2024 VITAM IN D 25 HYDRO XY vitamin D 25-oh 22 NG/mL 30-100 low Comme nt for VITAM IN D 25 HYDRO XY Pedia tric (< 17 Years ): 20 - 100 ng/mL Adult s: Insuf ficie nt: < 20 ng/mL Subop timal : 20 - 29 ng/mL Optim al: 30 - 100 ng/mL Not Available [facility] [address] [facility] [place], [address], 10/29/2024 17:20:33 10/27/19 25 10/27/2024 RHEUM ATOID FACTO R rheumatoid factor <10 IU/mL <14 Not Available [facility] [address] [facility] [place], [address], 10/29/2024 17:20:33 10/27/19 25 10/29/2024 AALIYAH PANEL 9 dsdna antibody 8 IU/mL 0-4 high Not Available [facility] [address] [facility] [place], [address], 10/29/2024 17:20:34 10/27/19 25 10/29/2024 AALIYAH PANEL 9 title i math tutor antibody 0.2 ai 0.0-0. 9 Not Available [facility] [address] [facility] [place], [address], 10/29/2024 17:20:34 10/27/19 25 10/29/2024 AALIYAH PANEL 9 ssa antibody <0.2 ai 0.0-0. 9 Not Available [facility] [address] [facility] [place], [address], 10/29/2024 17:20:34 10/27/19 25 10/29/2024 AALIYAH PANEL 9 ssb antibody <0.2 ai 0.0-0. 9 Not Available [facility] [address] [place], [address], 10/29/2024 17:20:34 10/27/19 25 10/29/2024 AALIYAH PANEL 9 scl-70 antibody <0.2 ai 0.0-0. 9 Not Available [facility] [address] [place], [address], 10/29/2024 17:20:34 10/27/19 25 10/29/2024 AALIYAH PANEL 9 sm antibody <0.2 ai 0.0-0. 9 Not Available [facility] [address] [place], [address], 10/29/2024 17:20:34 10/27/19 25 10/29/2024 AALIYAH PANEL 9 centromere B Ab <0.2 ai 0.0-0. 9 Not Available [facility] [address] [place], [address], 10/29/2024 17:20:34 10/27/19 25 10/29/2024 AALIYAH PANEL 9 chromatin Ab IgG <0.2 ai 0.0-0. 9 Not Available [facility] [address] [place], [address], 10/29/2024 17:20:34 10/27/19 25 10/29/2024 AALIYAH PANEL 9 enrique-1 antibody <0.2 ai 0.0-0. 9 Comme nt for AALIYAH PANEL 9 Inter preti ve Range dsDNA : Negat kaiden: 0 - 4 IU/mL Indet ermin ate: 5 - 9 IU/mL Posit kaiden: >= 10 IU/mL Not Available [facility] [address] [place], [address], 10/29/2024 17:20:34 10/27/19 25 10/27/2024 CBC WITH DIFFE RENTI AL WBC 8.2 K/uL 4.0-11 .0 Not Available [facility] [address] [place], [address], 10/29/2024 17:20:34 10/27/19 25 10/27/2024 CBC WITH DIFFE RENTI AL RBC 5.20 M/uL 4.00-5 .50 Not Available [facility] [address] [place], [place], [address], 10/29/2024 17:20:34 10/27/19 25 10/27/2024 CBC WITH DIFFE RENTI AL hemoglobin 13.7 g/dL 12.0-1 6.0 Not Available [facility] [address] [place], [place], [address], 10/29/2024 17:20:34 10/27/19 25 10/27/2024 CBC WITH DIFFE RENTI AL hematocrit 44.0 % 36.0-4 8.0 Not Available [facility] [address] [place], [address], 10/29/2024 17:20:34 10/27/19 25 10/27/2024 CBC WITH DIFFE RENTI AL MCV 84.6 fL 78.0-1 02.0 Not Available [facility] [address] [place], [address], 10/29/2024 17:20:34 10/27/19 25 10/27/2024 CBC WITH DIFFE RENTI AL MCH 26.3 pg 25.0-3 5.0 Not Available [facility] [address] [place], [address], 10/29/2024 17:20:34 10/27/19 25 10/27/2024 CBC WITH DIFFE RENTI AL MCHC 31.1 g/dL 30.0-3 8.0 Not Available [facility] [address], [place], [address], 10/29/2024 17:20:34 10/27/19 25 10/27/2024 CBC WITH DIFFE RENTI AL RDW 14.1 % 11.5-1 6.0 Not Available [facility] [address], [place], [address], 10/29/2024 17:20:34 10/27/19 25 10/27/2024 CBC WITH DIFFE RENTI AL platelet count 311 K/uL 150-45 0 Not Available [facility] [address], [place], [address], 10/29/2024 17:20:34 10/27/19 25 10/27/2024 CBC WITH DIFFE RENTI AL abs neutrophils 5.3 K/uL 1.8-7. 0 Not Available [facility] [address], [place], [address], 10/29/2024 17:20:34 10/27/19 25 10/27/2024 CBC WITH DIFFE RENTI AL abs lymphocytes 2.0 K/uL 1.0-4. 0 Not Available [facility] [address], [place], [address], 10/29/2024 17:20:34 10/27/19 25 10/27/2024 CBC WITH DIFFE RENTI AL abs monocytes 0.6 K/uL 0.1-1. 1 Not Available [facility] [address], [place], [address], 10/29/2024 17:20:34 10/27/19 25 10/27/2024 CBC WITH DIFFE RENTI AL abs eosinophils 0.3 K/uL 0.0-0. 5 Not Available [facility] [address] [place], [address], 10/29/2024 17:20:34 10/27/19 25 10/27/2024 CBC WITH DIFFE RENTI AL abs basophils 0.0 K/uL 0.0-0. 3 Not Available [facility] [address] [place], [address], 10/29/2024 17:20:34 10/27/19 25 10/27/2024 CBC WITH DIFFE RENTI AL abs immature grans 0.0 K/uL 0.0-0. 1 Not Available [facility] [address] [place], [address], 10/29/2024 17:20:34 10/27/19 25 10/27/2024 CBC WITH DIFFE RENTI AL neutrophils 64.2 % Not Available [facility] [address] [place], [address], 10/29/2024 17:20:34 10/27/19 25 10/27/2024 CBC WITH DIFFE RENTI AL lymphocytes 23.8 % Not Available [facility] [address] [place], [address], 10/29/2024 17:20:34 10/27/19 25 10/27/2024 CBC WITH DIFFE RENTI AL monocytes 6.8 % Not Available [facility] [address] [place], [address], 10/29/2024 17:20:34 10/27/19 25 10/27/2024 CBC WITH DIFFE RENTI AL eosinophils 4.2 % Not Available [facility] [address] [place], [address], 10/29/2024 17:20:34 10/27/19 25 10/27/2024 CBC WITH DIFFE RENTI AL basophils 0.5 % Not Available [facility] [address] [place], [address], 10/29/2024 17:20:34 10/27/19 25 10/27/2024 CBC WITH DIFFE RENTI AL immature grans 0.5 % Not Available [facility] [address] [place], [address], 10/29/2024 17:20:34 10/27/19 25 10/27/2024 CBC WITH DIFFE RENTI AL nucleated RBCs <1.0 /100_ WBCs <1 Not Available [facility] [address] [place], [address], 10/29/2024 17:20:34 10/27/19 25 10/27/2024 SED RATE (ESR) sedimentatio n rate 28 mm/HR <20 high Not Available [facility] [address] [facility] [place], [address], 10/29/2024 17:20:35 04/15/19 25 04/15/2024 XR, cervi imelda spine , 2 or 3 view No observ ation record ed. [address] [place], [address], 04/21/2024 13:47:50 Result Notes None recorded. Problems Name Problem SNOMED Code Status Onset Date Resolution Date Notes Provider Name and Address Organization Details Recorded Time Hypoglyce opal 281914416 Active 2023 Norma lee [facility] 14:47:41 Congestiv e heart failure 22383301 Active 2023 Norma lee [facility] 14:47:54 Pain of multiple joints 24887766 Active 2023 JAYSON TELLO N, ISOTOPE TECHNOLOGIST [address], [place], [address], [place] [facility] 5 10:45:57 Cardiac pacemaker in situ 265434148 Active 2023 JAYSON TELLO N, ISOTOPE TECHNOLOGIST [address], [place], [address], [place] [facility] 4 15:23:10 Iron deficienc y anemia 76457311 Active 2023 JAYSON TELLO N, ISOTOPE TECHNOLOGIST [address], [place], [address], [place] [facility] 4 13:52:09 Allergic reaction to bee sting 592993453 Active 2023 JAYSON TELLO N, ISOTOPE TECHNOLOGIST [address], [place], [address], [place] [facility] 4 13:53:16 Iron deficienc y 04689110 Active 2023 JAYSON TELLO N, ISOTOPE TECHNOLOGIST [address], [place], [address], [place] [facility] 4 11:14:21 Gastroeso phageal reflux disease without esophagit is 855309354 Active 2023 JAYSON TELLO N, ISOTOPE TECHNOLOGIST [address], [place], [address], [place] [facility] 4 13:35:52 Cardiomyo rosaura 26788036 Active 2023 JAYSON TELLO N, ISOTOPE TECHNOLOGIST [address], [place], [address], [facility] - [facility] 4 13:36:58 Supravent ricular tachycard ia 2478046 Active 2023 JAYSON TELLO N, ISOTOPE TECHNOLOGIST [address], [place], [address], [facility] - [facility] 4 13:37:36 Biliary sludge 33703138 Active 2023 JAYSON RICHARDSO N, ISOTOPE TECHNOLOGIST [address], [place], [address], [facility] 4 11:38:58 Acute bronchiti s 74590076 Completed 202310/26/2024 JAYSON RICHARDSO N, ISOTOPE TECHNOLOGIST [address], [place], [address], [facility] 5 10:35:52 Anterior knee pain 667113596 Active 2023 JAYSON RICHARDSO N, ISOTOPE TECHNOLOGIST [address], [place], [address], [facility] 4 11:40:01 Morbid obesity 448297853 Active 2023 JAYSON RICHARDSO N, ISOTOPE TECHNOLOGIST [address], [place], [address], [facility] 4 09:19:52 Vitamin D deficienc y 84660820 Active 2023 JAYSON RICHARDSO N, ISOTOPE TECHNOLOGIST [address], [place], [address], [facility] 4 11:13:38 Liver enzymes level above reference range 491060848 Active 2023 JAYSON RICHARDSO N, ISOTOPE TECHNOLOGIST [address], [place], [address], [facility] 4 11:13:40 Anti-nucl ear factor detected 012141380 Active 2023 JAYSON RICHARDSO N, ISOTOPE TECHNOLOGIST [address], [place], [address], [facility] 4 15:56:51 Cervical intraepit helial neoplasia grade 2 910148759 Active 2023 JAYSON RICHARDSO N, ISOTOPE TECHNOLOGIST [address], [place], [address], [facility] 4 16:00:49 Low back pain co-occurr ent with neuralgia of left sciatic nerve 427050519829 77144 Active 2023 JAYSON Vaughn APRN [address], [place], [address], [facility] 4 10:43:42 Pain of left knee joint 948696749952 107 Active 2023 [address]IE CORTEZ [address], [place], [address], [facility] 4 11:00:17 Ankle pain 388508090 Active 2023 [address] CORTEZ [address], [place], [address], [facility] 4 11:00:36 Ankle pain 044520549 Active 2023 ASHLIE CORTEZ [address], [place], [address], [facility] 4 11:01:19 Allergic rhinitis caused by animal dander 587991078 Active 2024 JAYSON Vaughn APRN [address], [place], [address], [facility] 5 10:16:27 Teratoma of ovary 297365141 Active 2024 JAYSON Vaughn APRN [address], [place], [address], [facility] 5 13:40:12 Talipes planus 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 Procedures Surgical History Date Name Laterality Status Provider Name and Address Organization Details Recorded Time 08/15/19 24 cholecystectomy completed JAYSON MENDOZA APRN [address], [place], [address], [facility] 08/20/2023 14:32:59 Imaging Results None recorded. Procedure Notes None recorded. Medical Equipment None Reported. Allergies Allergen ID Allergen Name Allergen Category Reaction Reaction Severity Criticality Documentation Date Start Date Code Code System Note Provider Name and Address Organization Details Recorded Time [id number] gabapenti n medicatio n anaphylax is Not available Not available 08/20/2023 12622 RxNorm JAYSON TELLO N, ISOTOPE TECHNOLOGIST [address], [place], [address], [facility] 4 14:53:12 [id number] hydrocodo ne Not available anaphylax is Not available [facility] 11/27/2023 5489 RxNorm Norma Prem null, [facility] 4 12:57:53 955274 Abilify medicatio n anaphylax is Not available [facility] 11/27/2023 86959 3 RxNorm Norma Prem null, [facility] 4 12:58:09 [id number] Topamax medicatio n other Not available [facility] 11/27/2023 46875 3 RxNorm patie nt repor ts stop breat [facility] 12:58:47 [id number] Zoloft medicatio n dyspnea Not available [facility] 11/27/2023 00352 RxNorm Norma Prem null, [facility] 4 12:59:25 213654 aspirin medicatio n anaphylax is Not available [facility] 11/27/2023 1191 RxNorm Norma Prem null, [facility] 4 12:59:44 [id number] acetamino phen / dextromet horphan / doxylamin e / pseudoeph edrine medicatio n dyspnea Not available [facility] 11/27/2023 75960 4 RxNorm Norma Prem null, [facility] 4 13:00:00 [id number] Tylenol medicatio n arthralgi a (joint pain) dyspnea Not available Not available [facility] 11/27/2023 77775 3 RxNorm Norma Amaro null, [facility] 4 13:00:46 073939 melatonin medicatio n dyspnea Not available [facility] 11/27/2023 6711 RxNorm Norma Amaro null, [facility] 4 13:01:42 528389 cat dander environme nt anaphylax is Not available [facility] 11/27/2023 Norma Amaro null, [facility] 4 13:04:57 710690 onion extract food,medi cation anaphylax is Not available [facility] 11/27/2023 13477 69 RxNorm Norma Prem null, [facility] 4 13:05:26 418679 diphenhyd ramine medicatio n Not available Not available Not available 02/03/2025 3498 RxNorm Not Available [employer] [facility] [employer] - prod 5 13:29:09 [id number] sertralin e medicatio n Not available Not available Not available 02/03/2025 43611 RxNorm Not Available [employer] [facility] [employer] - prod 5 13:29:09 [id number] honey bee venom environme nt Not available Not available Not available 02/03/2025 02632 7 RxNorm Not Available [employer] [facility] [employer] - prod 5 13:29:19 [id number] Ozempic medicatio n vomiting Not available Not available 02/03/2025 51822 07 RxNorm Not Available [employer] [facility] [employer] - prod 5 13:29:19 [id number] corn syrup food vomiting Not available Not available 02/03/2025 57022 76 RxNorm Not Available [employer] [facility] [employer] - prod 5 13:29:19 280213 poison luc extract environme nt Not available Not available Not available 02/03/2025 89070 6 RxNorm Not Available magda - External Data Service - prod 5 13:29:19 640100 Toxicoden dron vernix leafy twig extract Not available Not available Not available Not available 02/03/2025 03047 61 RxNorm Not Available magda [employer] External Data Service - prod 5 13:29:19 172929 bisoprolo l Not available bradycard ia Not available Not available 02/03/2025 30429 RxNorm Not Available magda - External Data Service - prod 5 13:29:19 358708 peanut oil food,medi cation angioedem a moderate Not available 02/03/2025 72238 RxNorm Not Available magda - External Data Service - prod 5 13:29:19 118353 aripipraz ole medicatio n Not available Not available Not available 02/03/20252016 60987 RxNorm Not Available mag[employer] - External Data Service - prod 5 13:30:06 682353 topiramat e medicatio n Not available Not available Not available 02/03/20252016 19493 RxNorm Not Available mag[employer] - External Data Service - prod 5 13:30:06 249396 Vaccine product containin g only influenza virus antigen (medicina l product) medicatio n Not available Not available Not available 02/03/2025 30835 13351 105 SNOMED Not Available [employer] - External Data Service - prod 5 13:30:59 75293 Benadryl medicatio n anaphylax is Not available high 06/19/2023 76705 7 RxNorm Norma Rochelle null, [facility] 4 14:37:48 29935 egg extract food,medi cation fever Not available low 06/19/2023 77971 15 RxNorm Norma Rochelle null, [facility] 4 14:39:43 95561 wasp venoms environme nt anaphylax is Not available high 06/19/2023 86118 RxNorm Norma Rochelle null, [facility] 15:05:42 Medications Name Sig Start Date Stop Date Status Note LastModified by Organization Details LastModified Time methocarb estela 500 mg tablet TAKE 2 TABLETS BY MOUTH, 4 TIMES DAILY FOR MUSCLE SPASMS. 06/18 completed Not Available Not Available Not Available tizanidin e 4 mg tablet Take 1 tablet every 12 hours by oral route as needed for 7 days, for muscle spasms. 09/16 completed stopped medicati on due to increase d nausea Not Available Not Available Not Available cimetidin e 400 mg tablet TAKE 2 Tablets BY MOUTH ONCE DAILY FOR stomach 07/07 completed Not Available Not Available Not Available prednison e 20 mg tablet Take 2 tablets every day by oral route with meal(s) for 5 days, for bronchit is. 08/19 completed Not Available Not Available Not Available sulfameth oxazole 800 mg-trimet hoprim 160 mg tablet Take 1 tablet every 12 hours by oral route with meal(s) for 7 days. 06/30 completed Not Available Not Available Not Available ketorolac 10 mg tablet TAKE 1 Tablet BY MOUTH EVERY 6 HOURS NEEDED FOR PAIN 06/18 completed Not Available Not Available Not Available cephalexi n 500 mg capsule TAKE 1 Capsule BY MOUTH EVERY 8 HOURS UNTIL GONE. 06/18 completed Not Available Not Available Not Available pantopraz ole 40 mg tablet,de layed release Take 1 tablet twice a day by oral route for 30 days. 09/01 completed Not Available Not Available Not Available ferrous sulfate 325 mg (65 mg iron) tablet Take 1 tablet every day by oral route with meal(s) for 30 days. 2023 active has not picked up Not Available Not Available Not Available esomepraz ole magnesium 40 mg capsule,d elayed release Take 1 capsule every day by oral route for 30 days. 09/16 completed not been taking due to increase d nausea Not Available Not Available Not Available dexametha sone 4 mg tablet Take 1 tablet every day by oral route for 5 days. 10/06 completed Not Available Not Available Not Available diclofena c sodium 75 mg tablet,de layed release Take 1 tablet twice a day by oral route with meal(s) for 30 days. active not taking Not Available Not Available Not Available monteluka st 10 mg tablet TAKE 1 TABLET EVERY DAY IN THE EVENING TO PREVENT ASTHMA AND/OR ALLERGY. 07/07 completed Not Available Not Available Not Available metoprolo l succinate ER 25 mg tablet,ex tended release 24 hr TAKE 1 Tablet BY MOUTH TWICE DAILY 06/18 completed Not Available Not Available Not Available dexametha sone sodium phosphate 4 mg/mL injection solution Inject 1 mL every day by intramus cular route for 1 day. 10/06 completed Not Available Not Available Not Available epinephri ne 0.3 mg/0.3 mL injection , auto-inje ctor Take 1 auto by injectio n route as directed for 1 day. active Not Available Not Available No t Available albuterol sulfate HFA 90 mcg/actua tion aerosol inhaler INHALE 1 PUFF BY MOUTH, EVERY 4 TO 6 HOURS NEEDED. active Not Available Not Available No t Available Vitamin D2 1,250 mcg (50,000 unit) capsule Take 1 capsule every week by oral route for 30 days. 2023 active not picked up due copay Not Available Not Available Not Available metoprolo l tartrate 25 mg tablet TAKE 1 Tablet BY MOUTH TWICE DAILY 06/18 completed Not Available Not Available Not Available diclofena c 1 % topical gel APPLY 2 GRAMS TO THE AFFECTED AREA(S) BY TOPICAL ROUTE 4 TIMES PER DAY 2023 active Not Available Not Available Not Avai lable Vitals Date Recorded Body height Body mass index (BMI) Body weight Heart rate Respiratory rate Body temperature Oxygen saturation Systolic And Diastolic Provider Name and Address Organization Details Last Updated DateTime 170.18 cm 48.2 kg/m2 355572. 45 g 84 /min 18 /min 97.9 [degF] 98 % 130/76 mm[Hg] Norma Amaro [facility] 15:20:09 Date Recorded Body height Body mass index (BMI) Body weight Provider Name and Address Organization Details Last Updated DateTime 05/06/2024 170.18 cm 48.2 kg/m2 027299.45 g JAYSON MENDOZA, [employer] [address], [place], [address], [facility] 05/06/2024 14:09:11 Date Recorded Body height Body mass index (BMI) Body weight Respiratory rate Heart rate Oxygen saturation Body temperature Systolic And Diastolic Provider Name and Address Organization Details Last Updated DateTime 170.18 cm 46.8 kg/m2 015506. 12 g 18 /min 83 /min 98 % 97.4 [degF] 124/80 mm[Hg] Norma Amaro [facility] 16:10:16 Date Recorded Body weight Provider Name an d Address Organization Details Last Updated DateTime 07/28/2024 279551.400588 g Not Available [employer] 2024 14:50:36 Date Recorded Body weight Body weight Provider Name and Address Organization Details Last Updated DateTime 07/29/2024 194956.53662 9 g 609035.92368 5 g Not Available [facility] 07/29/2024 15:28:16 Date Recorded Body weight Provider Name an d Address Organization Details Last Updated DateTime 07/30/2024 678946.571336 g Not Available [employer] 2024 14:35:30 Date Recorded Body weight Provider Name an d Address Organization Details Last Updated DateTime 08/06/2024 268811.664136 g Not Available [employer] 2024 13:53:53 Date Recorded Body weight Provider Name an d Address Organization Details Last Updated DateTime 08/12/2024 452533.613058 g Not Available [employer] 2024 13:28:45 Date Recorded Body weight Provider Name an d Address Organization Details Last Updated DateTime 08/18/2024 980725.491328 g Not Available [employer] 2024 11:11:15 Date Recorded Body weight Provider Name an d Address Organization Details Last Updated DateTime 08/29/2024 620389.162329 g Not Available [employer] 2024 09:20:19 Date Recorded Body weight Provider Name an d Address Organization Details Last Updated DateTime 08/31/2024 401635.410155 g Not Available [facility] 2024 15:50:41 Date Recorded Body height Body mass index (BMI) Body weight Respiratory rate Heart rate Oxygen saturation Body temperature Systolic And Diastolic Provider Name and Address Organization Details Last Updated DateTime 06/20/202 5 170.18 cm 47.3 kg/m2 327030. 9 g 18 /min 93 /min 97 % 97.4 [degF] 112/62 mm[Hg] Norma Amaro [facility] 5 12:28:47 Date Recorded Body weight Provider Name an d Address Organization Details Last Updated DateTime 09/14/2024 337861.74554 g Not Available [employer] 025 16:12:37 Date Recorded Body weight Provider Name an d Address Organization Details Last Updated DateTime 09/24/2024 548331.485576 g Not Available [employer] 2024 12:19:19 Date Recorded Body weight Provider Name an d Address Organization Details Last Updated DateTime 10/02/2024 323871.464669 g Not Available [facility] 2024 17:52:16 Date Recorded Body weight Provider Name an d Address Organization Details Last Updated DateTime 10/08/2024 9117.710280 g Not Available [facility] 10/09/19 17:57:05 Date Recorded Body weight Provider Name an d Address Organization Details Last Updated DateTime 10/11/2024 204120.930436 g Not Available [facility] 2024 14:33:22 Date Recorded Body weight Provider Name an d Address Organization Details Last Updated DateTime 10/25/2024 806803.808705 g Not Available [employer] 2024 11:07:20 Date Recorded Body height Body mass index (BMI) Body weight Respiratory rate Body temperature Heart rate Oxygen saturation Systolic And Diastolic Provider Name and Address Organization Details Last Updated DateTime 170.18 cm 47.5 kg/m2 308164. 49 g 18 /min 97.9 [degF] 81 /min 96 % 112/70 mm[Hg] Norma Amaro [facility] 5 10:08:21 Date Recorded Body weight Provider Name an d Address Organization Details Last Updated DateTime 11/04/2024 66605.892491 g Not Available [facility] 025 12:49:54 Date Recorded Body weight Provider Name an d Address Organization Details Last Updated DateTime 11/22/2024 6894.742319 g Not Available [facility] 11/23/19 15:16:58 Date Recorded Body weight Provider Name an d Address Organization Details Last Updated DateTime 12/30/2024 730319.844155 g Not Available [employer] 2024 12:15:17 Date Recorded Body weight Provider Name an d Address Organization Details Last Updated DateTime 01/07/2025 453493.891618 g Not Available [employer] 2024 10:13:22 Social History Question Answer Notes LastModified by [employer] Details LastModified Time Tobacco Smoking Status Former Smoker Norma lee, [facility] 06/19/2023 14:52:50 In The 14 Days Before Symptom Onset, Have You Had Close Contact With A Laboratory-confirm ed COVID-19 While That Case Was Ill? No Information n ot available 06/19/2023 In The 14 Days Before Symptom Onset, Have You Had Close Contact With A Person Who Is Under Investigation For COVID-19 While That Person Was Ill? No Information not available 06/19/2023 Have You Been To An Area Known To Be High Risk For COVID-19? No Information not available 06/19/2023 What Type Of Diet Are You Following? REGULAR Information n ot available 06/19/2023 What Was The Date Of Your Most Recent Tobacco Screening? 06/30/2024 Information not available 06/30/2024 How Many Children Do You Have? 0 Information not available 06/19/2023 What Is Your Relationship Status? Single Information not available 06/19/2023 Do You Use Your Seat Belt Or Car Seat Routinely? Yes Information not available 06/19/2023 How Much Tobacco Do You Smoke? No Information not available 06/19/2023 Has Tobacco Cessation Counseling Been Provided? Yes Information not available 06/19/2023 On What Date Was Tobacco Cessation Counseling Provided? 06/30/2024 Information not available 06/30/2024 How Many Years Have You Smoked Tobacco? 2 Information not available 06/19/2023 Sex: Unknown Functional Status Question Answer Note LastModified by [employer] Details LastModified Time Do you use any illicit or recreational drugs? No Information not available 06/19/2023 Do you or have you ever used any other forms of tobacco or nicotine? No Information not available 06/19/2023 Are you currently employed? Yes Information not available 06/19/2023 Do you have transportation difficulties? No Information not available 06/19/2023 Are you able to walk independently without assistance or assistive devices? YESWOREST Information not available 06/19/2023 What is your exercise level? Moderate Information not available 06/19/2023 Mental Status Question Answer Note LastModified by Organization D etails LastModified Time Do you feel stressed (tense, restless, nervous, or anxious, or unable to sleep at night)? [id number] Information not available 06/19/2023 Family History Relationship Description Onset Age of this Age Resolved Age Notes LastModified by Organization Details LastModified Time Mother Malignant neoplasm of ovary 52 52 [email or web address] Not available 14:39:39 Sister Malignant neoplasm of ovary [email or web address] Not available 14:39:48 Maternal Grandmother Malignant neoplasm of ovary [email or web address] Not available 14:39:57 Father Rheumatoid arthritis [email or web address] Not available 14:42:35 Medical History Condition Response Anxiety Disorder Y Muscle, Joint, or Bone Problems Y Arthritis Y GERD / Reflux Y Hospital Admission other than Y Congestive Heart Failure Y Heart Disease Y Asthma Y Allergies Y Gynecological History Statement/Question Response Age at Menarche 14 Current Control Method None Flow Heavy LMP Unknown Obstetrics History GPAL:G 0 P 0 0 0 0 Past Encounters Encounter ID Performer Location Encounter Start Date Encounter Closed Date Diagnosis/Indication Diagnosis SNOMED-CT Code Diagnosis ICD10 Code Diagnosis IMO Codes Diagnosis Note [id number] [facility] ABD[facility] [address] [place] [address] 06/19/2023 14:27:24 06/19/2023 15:41:32 Cardiac pacemaker in situ 251670559 Z95.0 1. Staff to request records from [facility] and cardiology for review.2. F/u in 1 week. Iron defic iency anemia 87731744 D50.9 1. Repeat iron studies and CBC today.2. Staff to request records from the ER for eval.3. F/u in 1 week. Hypoglycemia 462912692 E 16.2 1. Reported h/o.2. Below labs for eval.3. F/u in 1 week.4. Has glucometer to monitor glucose. Allergic r eaction to bee sting 544050396 T63.444A 1. Refill for EpiPen.2. Use as directed and keep with you at all times, especially when outdoors.3 . Staff to request ER records. [id number] [facility] [address] [place] [address] 07/08/2023 10:14:59 07/08/2023 11:31:58 Epigastric pain 48842183 R10.13 1. US abdomen ordered today.2. Below labs. H pylori ordered.3. Start HD PPI per above orders.4. F/u in 2 weeks. Sooner for worsening. Gastroesop hageal reflux disease without esophagitis 072929240 K21.9 1. Try eating several meals rather than 2-3 large meals throughout the day.2. After you eat, wait 2 to 3 hours before you lie down.3. Avoid chocolate, mint, and alcohol as these can make GERD worse.4. Avoid known foods that worsen symptoms including spicy or acidic foods.5. Start high dose Protonix. Concerns for PUD. Dark stools 52350062 R19 .5 1. FOBT sent home with patient for her to return.2. F/u in 2 weeks. Sooner for worsening. Anterior knee pain 64417 3006 M25.569 1. Xray knee and ankle.2. F/u in 2 weeks to review results.3. May take OTC APAP as directed prn pain. Pain of le ft ankle joint 7075881505 4002221 M25.572 Iron deficiency 81631158 E61.1 1. Start Ferrous Sulfate daily.2. Report GI upset when taking.3. F/u in weeks. Morbid obesity 280478604 E66.01 1. Weight, lifestyle, diet reviewed.2 . F/u in 2 weeks. Cardiomyopathy 30449416 I42.9 1. Records pending from [facility] cardiology to review.2. Will need pacemaker check and routine f/u. Wishes to see Dr. Whitman. Supraventr icular tachycardia 0479484 I47.10 1. H/o, pacemaker implanted. 2. Continue to monitor HR at home. Report tachycardi a. [id number] JAYSON MENDOZA [facility] [address] [place] [address] 07/22/2023 10:00:53 07/22/2023 11:00:06 Acute bronchitis 43145363 J20.9 1. Increase oral liquids. 2. Likely viral etiology.3 . May take tylenol prn as recommende d for pain/fever .4. Use the albuterol prn cough/dysp zaida as prescribed .5. Start the Prednisone with food. Stop for worsening GI symptoms.6 . Return to clinic in 2-3 days for no improvemen t or sooner for worsening. Biliary sludge 78427586 K83.[address] Harvey for RUQ pain, GI upset, and gallbladde r sludge.2. Continue bland diet. Increase water intake and avoid foods that worsen symptoms.3 . Call our office if you have not been contacted within 2 days in regards to referral. Anterior knee pain 22152 3006 M25.569 1. Xray knee and ankle pending.2. May take OTC APAP as directed prn pain.3. Staff to request xray results for review. [id number] [facility] [address] [place] [address] 08/20/2023 14:00:59 08/21/2023 10:04:02 Gastroesophageal reflux disease without esophagitis 256401919 K21.9 1. Try eating several meals rather than 2-3 large meals throughout the day.2. After you eat, wait 2 to 3 hours before you lie down.3. Avoid chocolate, mint, and alcohol as these can make GERD worse.4. Avoid known foods that worsen symptoms including spicy or acidic foods.5. Switch to HD Esomeprazo le. Stop NSAIDs.6. F/u in 1 week. Pain of mu ltiple joints 27631864 M25.50 1. Below labs for further eval.2. F/u in 1 week. Morbid obesity 651400741 E66.01 1. Weight, lifestyle, diet reviewed.2 . Below labs. Postoperative visit 1836 31115 Z48.89 1. F/u with Dr. Harvey next week without fail. Allergy to food 05271317 1 Z91.018 1. Consult with ENT for multiple concerns with food and environmen armando allergies. Spasm of m uscle of lower back 0559897333 9660096 M62.226 [id number] JAYSON MENDOZA [facility] [address] [place] [address] 09/02/2023 09:49:25 09/02/2023 11:47:04 Gastroesophageal reflux disease without esophagitis 643205178 K21.9 1. Try eating several meals rather than 2-3 large meals throughout the day.2. After you eat, wait 2 to 3 hours before you lie down.3. Avoid chocolate, mint, and alcohol as these can make GERD worse.4. Avoid known foods that worsen symptoms including spicy or acidic foods.5. Continue current prescripti on for GERD as ordered for an additional 2 weeks. F/u to review. Sooner for worsening. Anti-nucle ar factor detected 471937225 R76.8 1. Below labs for positive MARQUISE.2. F/u in 2 weeks to review. Liver enzy mes level above reference range 486515690 R74.01 1. Repeat CMP today.2. F/u in 2 weeks. Will call sooner with lab results. Vitamin D deficiency 347 19667 E55.9 1. Start Vit D2.2. Repeat in 6 weeks. Cervical intraepithelial neoplasia grade 2 415901601 N87.1 1. F/u has been scheduled with Dr. Alfaro in October for monitoring . Patient encouraged to f/u without fail. Cardiomyopathy 13753455 I42.9 1. Records pending from [facility] cardiology to review. Staff to request again today. [id number] JAYSON MENDOZA [employer] [facility] [address] [place] [address] 09/17/2023 11:02:24 09/17/2023 12:41:17 Anti-nuclear factor detected 593294532 R76.8 M25.50 1. Referral sent to [facility] for further work-up. Low back p ain co-occurrent with neuralgia of left sciatic nerve 1649353767 2101902 M54.42 1. Dexamethas one 6mg IM.2. Apply heat, put a warm water bottle, heating pad set on low, or warm cloth on your back. Do not go to sleep with a heating pad on your skin.3. To use ice, put ice or a cold pack on the area for 10 to 20 minutes at a time. Put a thin cloth between the ice and your skin.4. Instructed patient on exercises to improve sciatica pain.5. Take short walks (10 to 20 minutes) every 2 to 3 hours. Avoid slopes, hills, and stairs until you feel better. Walk only distances you can manage without pain, especially leg pain.6. Avoid heavy lifting or anything that worsens your back pain. [id number] [facility] [address] [place] [address] 10/07/2023 14:33:59 10/07/2023 15:38:46 Anti-nuclear factor detected 522541112 R76.8 M25.50 [facility] Low back p ain co-occurrent with neuralgia of left sciatic nerve 3199198108 6381768 M54.42 continue medical marijuana [id number] [facility] [address] [place] [address] 10/17/2023 10:39:01 10/17/2023 11:11:24 Pain of left knee joint 1903945938 70836 M25.562 XR left knee Ankle pain 401162635 M25 .579 XR of left ankle [id number] JAYSON MENDOZA [facility] [place] [facility] [address] [place] [address] 04/15/2024 13:53:58 04/16/2024 11:44:43 Pain of multiple joints 60456533 M25.50 1. [facility]2. F/u in 1 month. Neck pain 71598135 M54.2 1. Xray of cervical spine today.2. F/u after xray to review. Morbid obesity 141902438 E66.01 1. Weight, lifestyle, diet reviewed.2 . Below labs. Cardiomyopathy 95269897 I42.9 I42.0 1. Continue risk factor reduction. 2. Pacemaker checked recently.3 . Staff to request cardiology notes from recent visit. Supraventr icular tachycardia 2580189 I47.10 1. H/o, pacemaker implanted. 2. Continue to monitor HR at home. Report tachycardi a. Congestive heart failure 09749853 I50.9 1. Avoid foods that are high in sodium, this includes processed foods.2. Weigh daily at the same time, write these down and bring to next visit.3. Contact the clinic if you have new or increased shortness of breath, dizziness or lightheade d.4. Notify the clinic if you have sudden weight gain, such as 3 pounds or more in 2 to 3 days.5. Try to elevate the head of your bed at night when sleeping for orthopnea. 6. Continue to see cardiology for routine monitoring . Allergic r hinitis caused by animal dander 450070654 J30.81 1. Recommend to avoid exposure to cat dander. [id number] JAYSON MENDOZA APRN [facility] [address] [place] [address] 04/22/2024 15:15:48 04/23/2024 17:17:50 Pain of multiple joints 97345070 M25.50 1. Rheumatolo gy notes have been requested. 2. Start Diclofenac 75mg bid with meals. Stop for any GI upset.3. F/u in 1 month. Sooner for worsening. [id number] JAYSON MENDOZA APRN [facility] [address] [place] [address] 05/06/2024 12:23:55 05/06/2024 14:18:06 Furuncle 797132600 L02.92 1. Wash your hands frequently , including prior to and after applicatio n of the topical medication .2. Avoid showering or bathing with others.3. Change clothes and wash daily. Do not rewear them before washing.4. Recommend to start using an antibacter ial soap.5. Take the oral medication as prescribed . Ensure you complete the entire dose.6. FU in 2-3 days if no improvemen t or worsening of symptoms. Otherwise, FU in 1 week. Pain of mu ltiple joints 38035328 M25.50 1. Rheumatolo gy notes have been requested again today.2. Stop Diclofenac d/t GI upset.3. Report any further GI upset.4. Consult with rheumatolo gy. Concerned persistent pain is associated with rheumatolo gical etiology. 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 F/u with Dr. Alfaro as scheduled for continued monitoring .2. Due for repeat pap smear. Cardiac pa cemaker in situ 225618732 Z95.0 1. Scheduled with [facility] cardiology for monitoring .2. F/u after cardiology and gynecology consults. [id number] [facility] [address] [place] [address] 09/03/2024 11:39:48 09/03/2024 14:03:40 Talipes planus 23192706 M21.41 M21.42 [id number] 1. Consult with [facility] for orthotics. 2. F/u in 1 month.3. Sooner as needed. [id number] [facility] [address] [place] [address] 10/26/2024 09:37:25 10/26/2024 10:55:12 Pain of multiple joints 10317784 M25.50 R76.8 574555 1. Rheumatolo gy notes have been reviewed.2 . Intolerant of multiple NSAIDs.3. Repeat labs today. Vitamin D deficiency 347 69838 E55.9 1. Repeat Vit D today. Has not started Vit D2 previously prescribed . Iron deficiency 31258786 E61.1 1. Repeat iron studies. Has not started Ferrous Sulfate. Hyperlipid emia screening 275892256 Z13.220 346206 Teratoma of ovary 692612 006 D27.1 1. F/u with [facility] without fail for surgical interventi on. Hyperglycemia 60870522 R 73.9 64422 1. Insulin, A1c, c-peptide today. Talipes planus 11088590 M21.41 M21.42 [id number] 1. Has [place] now and this may be why they are not covering orthotics. Consider consult with [place] provider to discuss. Health Concerns Section Related Observation LastModified by Organization Detai ls LastModified Time None Recorded Concern Status LastModified by Organization Details LastModified Time None Recorded Advance Directives Directive None Recorded Payers Insurance Date Sequence Insurance Name Policy Number Policy Meyers Covered Member ID Meyers Member ID Guarantor Name 02/03/2025 1 [facility] - DUAL ELIGIBLE (MEDICARE REPLACEMENT/ADV ANTAGE - HMO) Hawa De La O Fernanda [id number] Hawa Michael 02/03/2025 3 FOR LIFE ( - MEDICARE SUPPLEMENT) Hawa Michael [id number] Hawa Michael 02/03/2025 1 FOR LIFE () Hawa Michael [id number] Hawa Michael 02/03/2025 1 MEDICARE-AR (MEDICARE) Hawa De La O Fernanda [id number] Hawa Michael 02/03/2025 MEDICAID-AR: (INSTITUTIONAL) Hawa De La O Fernanda [id number] Hawa Michael 02/03/2025 MEDICARE A-AR: [employer] - [facility] Hawa De La O Fernanda [id number] Hawa Michael 02/03/2025 1 [facility] (MEDICARE REPLACEMENT/ADV ANTAGE - PPO) Hawa De La O Fernanda [id number] Hawa Michael 02/03/2025 2 MEDICAID-AR: ON LICENSE OF [facility] Hawa De La O Fernanda [id number] Hawa Michael 02/03/2025 MEDICAID-[place] - [place] [employer] - INSTITUTIONAL (MEDICAID) Hawa De La O Fernanda [id number] Hawa Michael Notes Date Note Type Note Provider Name and Address Organization Details Recorded Time 04/22/2024 text/html Patient is a 39 y/o female that presents to the clinic today for follow up to discuss recent xray results of cervical spine and pain. She continues to have pain to her neck and her entire body. She reports that she has diffuse joint pain and it is keeping her from being able to work. She is afraid that she is going to lose her job because she cannot perform required duties quick enough d/t her pain. She has not tolerated muscle relaxants previously. She is still waiting to hear back from rheumatology regarding repeat labs. She did have a positive MARQUISE and mild elevation of ESR. JAYSONRA CORTÉSASHLIE MCGREGOR [address], [place], [phone], [facility] 04/23/2024 13:55:27 05/06/2024 text/html Patient is a 39 y/o female seen via audio and video communications for a f/u on joint pain. Patient unable to return for in person evaluation d/t road conditions. She reports that the Diclofenac have not helped any with her pain. She also reports complaints of diarrhea since starting. She denies abdominal pain, melena, hematochezia, or vomiting. She has not heard back from rheumatology. She continues to have complaints of diffuse joint pain unrelieved with nsaids. She also has complaints of a hard, red, abscess to her right upper leg. She reports it started as a small red spot a couple days ago and has gradually increased in size. She denies fever, chills, drainage, or red streaks. She did change to a different soap over the last week. JAYSONRA CORTÉSASHLIE MCGREGOR [address], [place], [id number], [facility] 05/06/2024 14:16:30 06/30/2024 text/html Patient is a 39 y/o female that presents to the clinic today for a f/u on recent imaging of abdomen. She went to [facility] following hitting a pot whole and jarring her neck/back. Imaging was obtained showing 6.2 x 4.8 x 4.7 cm septa aided fat containing left ovarian mass with coarse calcification consistent with left ovarian teratoma. She has a previous history of this, but we do not have imaging to compare. She was advised to f/u with her OBGYN multiple times in the past regarding this abnormality with abnormal pap. She has yet to do this, but we have contacted her OBGYN today and she is scheduled to see Dr. Alfaro. She agrees to make f/u for monitoring without fail. Cardiology has also made multiple attempts to schedule her and have been unsuccessful. She agrees with our office scheduling her today for the pacemaker check. JAYSONRA CORTÉSASHLIE MCGREGOR [address], [place], [phone], [facility] 07/02/2024 13:41:17 09/03/2024 text/html Patient is a 39 y/o female that presents to the clinic today to discuss getting new orthotics. She reports that her current orthotics are worn out and she is in need of a new pair. She has a h/o pes planus. She reports being very unsteady on her feet since she has been unable to wear the orthotics. JAYSON MENDOZA, APRN [address], [place], [id number], [facility] 09/03/2024 15:16:47 10/26/2024 text/html Patient is a 39 y/o female that presents to the clinic today for repeat fasting labs and continued multiple joint pain. She has been to see rheumatology, but has not returned for a f/u appt. She reports that she has continued to have joint pain of multiple joints that does impair her mobility. She has had a positive MARQUISE and elevated ESR. 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 She understands importance of removal, but has not scheduled a livery car driver. She reports that she did have the cardiac clearance. She was unable to get the orthotics ordered during last visit. Reports that her insurance is not covering them so she wasn't able to afford. JAYSON MENDOZA APRN [address], [place], [phone], [facility] 10/26/2024 10:50:34 OBGyn Episode No OBEpisode recorded.
--- OUTSIDE RECORDS SUMMARY | 2025-02-05 04:37 | XMS_ITS | Data Portability ---
Author Organization [facility], [facility] CArdiology. Address [address] [place] [address] Care Team Providers Care Rotary Operator Name Role Phone JANISMAXIMO Primary Care Provider [phone] MAXIMO TAN Referring Provider Assessment Encounter Date Assessment Date Assessment LastModified by Organization Details LastModified Time 08/27/2023 08/27/2023 This 38 y/o F with [email or web address] Not available 08/26/2023 15:45:11 Plan of Treatment Reminders Order Date Submit Date Provider Last Modified By Organization Details Last Modified Time Details Appointments None record ed. Lab None record ed. Referral None record ed. Procedures None record ed. Surgeries None record ed. Imaging None record ed. Medication Orders None record ed. Patient TargetsNo targets recorded. Patient InstructionsNo instructions recorded. Reason for Referral None Reported. Results Created Date Observation Date Name Description Value Unit Range Abnormal Flag Note LastModifiedBy Organization Detail LastModifiedTime 08/02/1907/31/2022 imagi ng/di agnos tic resul t No observ ation record ed. [facility] [address] [place], [address], 08/01/2022 07:59:41 08/02/19 23 08/01/2022 XR, chest [facility] [address] [place] [address] Radiol ogy Report Sergei t: Samuel GREEN arben: 0700 Date of Servic e:07/15 10[birth year]06 [id number] MR #: [id number] /AG E/SEX: 1984 / 37 / F Room/B ed: 3004-A Locati on: [place] FLR[facility] Access ion: [id number] Exam: Chest Portab le Reason : post PPM placem ent Orderi ng Provid er: Adam Ochoa MD Attend ing Provid er: Mp Gordillo MD CC: Don Torre ; Alison Gordillo ; Maximo Tan; Andrew SANABRIA,And rew Report Number :[id number] Chest Portab le, 023 5:41 AM: HISTOR Y:post PPM placem ent FINDIN GS: Single view chest obtain ed agreed with 023. Pacema ker projec ts over the left chest with leads extend ing into the right heart. No pneumo thorax or effusi on. Cardio pulmon jenna appear ance otherw ise unrema rkable . IMPRES NELSON: Interv al placem ent of pacema ker as above with no pneumo thorax . End of Report Dictat ed by: Andrew SANABRIA,And rew 0956 Transc riptio nist: ANTONELLA GILMORE 0956 Signed by: Andrew SANABRIA,And rew 0957 [email or web address] [facility] ([facility]) [facility] [place], [address], 08/05/2022 11:37:31 08/20/19 24 08/17/2023 pacem sriram remot e inter rogat ion (PROC ) No observ ation record ed. [email or web address] Not Available 2023 10:20:21 Result Notes None recorded. Problems Name Problem SNOMED Code Status Onset Date Resolution Date Notes Provider Name and Address Organization Details Recorded Time Supraventricular tachycardia 7107093 Active 2023 Melanie lee [place] - [facility] 15:45:22 Problem Notes None recorded. Medical Equipment None Reported. Allergies Allergen ID Allergen Name Allergen Category Reaction Reaction Severity Criticality Documentation Date Start Date Code Code System Note Provider Name and Address Organization Details Recorded Time 451905 Tylenol medicatio n Not available Not available Not available 08/02/202240420 3 RxNorm Traci lee [facility] 3 12:15:24 403510 aspirin medicatio n Not available Not available Not available 08/02/2022 1191 RxNorm Traci lee [facility] 3 12:15:31 Medications Name Sig Start Date Stop Date Status Note LastModified by Organization Details LastModified Time [facility] covid-19 rapid test 08/26 completed Not Available Not Available Not Available methocarbam ol 500 mg tablet TAKE 2 TABLETS BY MOUTH, 4 TIMES DAILY FOR MUSCLE SPASMS. 08/26 completed Not Available Not Available Not Available doxepin 50 mg capsule TAKE 1 CAPSULE BY MOUTH, EVERY DAY. DOSE INCREASE* 08/26 completed Not Available Not Available Not Available venlafaxine ER 75 mg capsule,ext ended release 24 hr TAKE 1 CAPSULE BY MOUTH, EVERY DAY 08/26 completed Not Available Not Available Not Available cetirizine 10 mg tablet TAKE 1 TABLET BY MOUTH, EVERY MORNING. 08/26 completed Not Available Not Available Not Available tizanidine 4 mg tablet Take 1 tablet every 6 hours by oral route. active Not Available Not Available No t Available cimetidine 400 mg tablet TAKE 2 Tablets BY MOUTH ONCE DAILY FOR stomach 08/26 completed Not Available Not Available Not Available doxepin 25 mg capsule TAKE 1 CAPSULE BY MOUTH, NIGHTLY AT BEDTIME 08/26 completed Not Available Not Available Not Available famotidine 40 mg tablet TAKE 1 TABLET BY MOUTH, TWICE DAILY. 08/26 completed Not Available Not Available Not Available prednisone 20 mg tablet 08/26 completed Not Available Not Available Not Available ketorolac 10 mg tablet TAKE 1 Tablet BY MOUTH EVERY 6 HOURS NEEDED FOR PAIN 08/26 completed Not Available Not Available Not Available bisoprolol fumarate 5 mg tablet TAKE 1 TABLET EVERY DAY BY ORAL ROUTE. 08/26 completed Not Available Not Available Not Available famotidine 20 mg tablet TAKE 1 TABLET BY MOUTH, TWICE DAILY 08/26 completed Not Available Not Available Not Available morphine ER 60 mg tablet,exte nded release 08/26 completed Not Available Not Available Not Available cephalexin 500 mg capsule TAKE 1 Capsule BY MOUTH EVERY 8 HOURS UNTIL GONE. 08/26 completed Not Available Not Available Not Available pantoprazol e 40 mg tablet,vandana yed release TAKE 1 Tablet BY MOUTH ONCE DAILY 08/26 completed Not Available Not Available Not Available esomeprazol e magnesium 40 mg capsule,del ayed release 08/26 completed Not Available Not Available Not Available montelukast 10 mg tablet TAKE 1 TABLET EVERY DAY IN THE EVENING TO PREVENT ASTHMA AND/OR ALLERGY. 08/26 completed Not Available Not Available Not Available fluticasone propionate 220 mcg/actuati on HFA aerosol inhaler INHALE 1 PUFF BY MOUTH, TWICE DAILY. 08/26 completed Not Available Not Available Not Available metoprolol succinate ER 25 mg tablet,exte nded release 24 hr TAKE 1 Tablet BY MOUTH TWICE DAILY 08/26 completed Not Available Not Available Not Available epinephrine 0.3 mg/0.3 mL injection, auto-inject or USE as directed FOR SEVERE allergic reaction. active Not Available Not Available No t Available albuterol sulfate HFA 90 mcg/actuati on aerosol inhaler INHALE 1 PUFF BY MOUTH, EVERY 4 TO 6 HOURS NEEDED. active Not Available Not Available No t Available metoclopram joyce 10 mg tablet TAKE 1 TABLET BY MOUTH, 4 TIMES DAILY NEEDED 08/26 completed Not Available Not Available Not Available metoprolol tartrate 25 mg tablet TAKE 1 Tablet BY MOUTH TWICE DAILY 08/26 completed Not Available Not Available Not Available Myrbetriq 25 mg tablet,exte nded release TAKE 1 TABLET BY MOUTH, ONCE DAILY 08/26 completed Not Available Not Available Not Available Ozempic 0.25 mg or 0.5 mg (2 mg/1.5 mL) subcutaneou s pen injector INJECT 0.25 MG EVERY WEEK BY SUBCUTANE OUS ROUTE. 08/26 completed Not Available Not Available Not Available Vitals Date Recorded Heart rate Respiratory rate Body weight Body mass index (BMI) Body height Oxygen saturation Systolic And Diastolic Provider Name and Address Organization Details Last Updated DateTime 102 /min 16 /min 418814. 78 g 49.6 kg/m2 170.18 cm 98 % 123/94 mm[Hg] Melanie Lawson [facility] 14:20:39 Social History Question Answer Notes LastModified by Organizat ion Details LastModified Time Tobacco Smoking Status Former Smoker Melanie lee, [facility] 08/27/2023 14:23:07 What Is Your Level Of Caffeine Consumption? Heavy [email or web address] Information not available 08/27/2023 Which Illicit Or Recreational Drugs Have You Used? THC [email or web address] Information not available 08/27/2023 What Was The Date Of Your Most Recent Tobacco Screening? 08/27/2023 [email or web address] Information not available 08/27/2023 Sex: Female Functional Status Question Answer Note LastModified by Organizat ion Details LastModified Time Do you use any illicit or recreational drugs? Yes [email or web address] Information not available 08/27/2023 What is your level of alcohol consumption? None [email or web address] Information not available 08/27/2023 Mental Status None recorded. Family History Nothing Reported. Medical History No medical history recorded. Gynecological HistoryNo gynecological history recorded. Obstetrics History GPAL:G 0 P 0 0 0 0 Past Encounters Encounter ID Performer Location Encounter Start Date Encounter Closed Date Diagnosis/Indication Diagnosis SNOMED-CT Code Diagnosis ICD10 Code Diagnosis IMO Codes Diagnosis Note [id number] Mallika Walters APRN [facility]. [address] [place], [place] [address] [address] 10/31/2017 17:42:18 11/03/2017 08:27:09 [id number] Mallika Walters APRN [facility]. [address] [place] [address] [place] [id number] 11/03/2017 09:17:40 11/04/2017 08:36:14 [id number] Mallika Walters APRN [facility]. [address] [place] [address] [place] [address] 11/04/2017 15:33:55 11/05/2017 14:49:50 [id number] Maximo Tan MD [facility]. [address] [place], [place] [address] [address] 11/11/2017 08:55:56 11/11/2017 11:33:39 [id number] Maximo Tan MD [facility]. [facility] [place] [address] 11/25/2017 08:35:50 11/25/2017 14:27:27 [id number] Mallika ASHLIE Walters [facility]. [facility] [place] [address] 12/16/2017 17:09:09 12/16/2017 18:09:37 [id number] Maximo Tan MD [facility]. [address] [place] [address] [place] [address] 01/05/2018 11:13:11 01/05/2018 14:31:08 [id number] Maximo Tan MD [facility]. [address] [place] [address] [place] [address] 01/12/2018 09:50:11 01/12/2018 11:14:15 [id number] MD [facility] [address] [place] [address] [place] [address] 01/14/2018 11:23:26 01/14/2018 13:08:38 [id number] Maximo Tan MD [facility]. [address] [place] [address] [place] [address] 02/16/2018 08:56:36 02/16/2018 10:07:39 [id number] Maximo Tan MD [facility]. [address] [place] [address] [place] [address] 02/26/2018 09:57:05 02/26/2018 10:46:38 [id number] Maximo Tan MD [facility]. [address] [place] [address] [place] [address] 03/04/2018 15:29:31 03/04/2018 16:50:52 [id number] Maximo Tan MD [facility]. [address] [place] [address] [place] [address] 03/12/2018 10:02:11 03/12/2018 10:56:32 [id number] MD [facility] [address] [place] [address] 03/30/2018 14:21:23 03/30/2018 15:50:22 [id number] Isela Butts APRN [facility]. [address] [place] [address] [place] [address] 05/06/2018 15:30:53 05/07/2018 17:22:07 [id number] MD [facility] [address] [place] [address] 07/06/2018 09:38:59 07/06/2018 10:27:32 [id number] Maximo Tan MD [facility]. [address] [place] [address] [place] [address] 08/20/2018 15:39:23 08/20/2018 17:00:30 [id number] Maximo Tan MD [facility]. [address] [place] [address] [place] [id number] 08/25/2018 13:32:04 08/25/2018 14:35:06 [id number] Maximo Tan MD [facility]. [address] [place] [address] [place] [address] 12/28/2018 10:59:40 12/28/2018 14:47:05 [id number] Maximo Tan MD [facility]. [address] [place] [address] [place] [id number] 01/14/2019 15:17:24 01/14/2019 16:59:56 [id number] Mallika Walters APRN [facility]. [address] [place] [address] [place] [address] 02/22/2019 17:28:31 02/23/2019 08:36:30 [id number] Maximo Tan MD [facility]. [address] [place] [address] [place] [address] 07/27/2019 11:19:58 07/27/2019 14:44:00 [id number] Maximo Tan MD [facility]. [address] [place] [address] [place] [address] 09/20/2019 14:26:26 09/21/2019 13:29:10 [id number] Maximo Tan MD [facility]. [address] [place] [address] [place] [address] 05/29/2020 16:17:21 06/06/2020 16:58:52 [id number] Maximo Tan MD [facility]. [address] [place], [place] [address] [address] 07/03/2020 14:07:54 07/11/2020 10:58:07 [id number] Maximo Tan MD [facility]. [address] [place], [place] [address] [address] 08/01/2020 16:37:05 08/02/2020 14:09:24 [id number] Maximo Tan MD [facility]. [address] [place], [place] [address] [address] 11/06/2020 14:57:35 11/07/2020 09:31:10 [id number] Neida Alfaro MD [place] [address] [place] [address] 01/03/2021 14:15:43 01/03/2021 15:14:48 [id number] Neida Alfaro MD [address] [address] [place] [address] 01/15/2021 13:19:20 01/15/2021 14:59:30 [id number] Bronwyn Kong APRN [facility]. [address] [place], [place] [address], [place] [address] 02/16/2021 13:40:45 02/27/2021 17:18:59 [id number] Maximo Tan MD [facility]. [address] [place] [address] [place] [address] 02/19/2021 10:18:11 02/22/2021 15:57:48 [id number] Maximo Tan MD [facility]. [address] [place], [place] [address] [address] 04/03/2021 10:05:11 04/04/2021 16:59:35 [id number] Maximo Tan MD [facility]. [address] [place], [place] [address] [address] 04/26/2021 13:55:21 04/27/2021 09:52:56 [id number] Neida Alfaro MD [address] [address] [place] [address] 05/09/2021 09:46:06 05/09/2021 11:09:05 [id number] Neida Alfaro MD [address] [address] [place] [address] 05/28/2021 12:09:31 05/28/2021 16:38:47 [id number] Mallika Blue APRN [facility]. [address] [place], [place] [address] [address] 07/27/2021 09:27:20 07/31/2021 10:29:00 [id number] Neida Alfaro MD [address] [address] [place] [address] 10/04/2021 14:41:11 10/04/2021 15:36:26 [id number] Maximo Tan MD [facility]. [address] [place], [place] [address] [address] 11/07/2021 15:38:54 11/22/2021 09:58:53 [id number] Maximo Tan MD [facility]. [address] [place], [place] [address] [address] 12/06/2021 16:59:08 12/13/2021 15:29:57 [id number] Maximo Tan MD [facility]. [address] [place], [place] [address] [address] 01/09/2022 11:41:36 01/22/2022 16:46:10 [id number] MARCIA COLÓN APRN [address] [place] [address] 01/25/2022 11:56:49 01/25/2022 13:03:49 [id number] Maximo Tan MD [facility] [place] [address] 04/02/2022 14:55:32 04/04/2022 15:48:44 [id number] Maximo Tan MD [facility], [place] [address] 05/27/2022 13:54:54 05/31/2022 10:47:09 [id number] Kim Lyle MD [facility] [address] [place], [place] [address] [address] 07/08/2022 13:38:14 07/08/2022 15:25:43 [id number] Kim Lyle MD [facility] [address] [place] [address] [place] [address] 07/25/2022 10:34:29 07/25/2022 16:24:24 [id number] Kim Lyle MD [facility] [address] [place] [address], [place] [address] 07/25/2022 15:13:48 07/25/2022 16:23:49 [id number] Don Regalado MD [facility] CArdiolog y. [address] [place] [address] [place] [address] 08/02/2022 11:57:29 08/02/2022 15:25:00 [id number] Maximo Tan MD [facility] [address] [place] [address], [place] [address] 08/03/2022 04:13:33 08/03/2022 09:42:42 [id number] Elvin Jarquin MD [facility] CArdiolog y. [address] [place] [address] [place] [address] 08/07/2022 09:37:14 08/07/2022 17:23:47 [id number] Kim Lyle MD [facility] [address] [place] [address] [place] [address] 08/29/2022 17:15:22 08/29/2022 18:00:43 [id number] Isela Butts [employer] [facility] [address] [place] [address] [place] [address] 10/10/2022 14:50:50 10/10/2022 16:07:05 [id number] Maximo Tan MD [facility] [address] [place] [address] [place] [address] 10/15/2022 15:26:50 10/16/2022 12:43:58 [id number] Maximo Tan MD [facility] [address] [place] [address] [place] [address] 11/26/2022 12:07:53 12/03/2022 12:32:10 [id number] Isela Butts [employer] [facility] [address] [place] [address] [place] [address] 12/09/2022 14:23:27 12/09/2022 15:53:31 [id number] CAROL PARRISH NP [facility] [address] [place] [address] [place] [address] 12/09/2022 16:01:12 12/25/2022 13:27:10 [id number] Maximo Tan MD [facility] [address] [place] [address] [place] [address] 12/24/2022 16:56:08 12/31/2022 14:37:44 [id number] Bronwyn Kong APRN [facility]. [address] [place] [address] [place] [address] 01/30/2023 15:08:25 02/10/2023 12:35:41 [id number] [facility] [address] [place] [address] [place] [address] 05/01/2023 10:42:56 05/01/2023 11:48:31 [id number] [facility]. [address] [place] [address] [place] [address] 05/16/2023 11:46:26 05/16/2023 11:52:16 [id number] She Hansen APRN [facility] CArdiolog y. [address] [facility] [place] [address] 08/27/2023 13:59:32 08/27/2023 16:21:42 Supraventricular tachycardia 7974593 I47.10 - Several events noted on pacemaker- Patient stopped Metoprolol due to causing suicidal thoughts- refuses to take any medication s due to side effects- reports PCP has referred her to [facility] Cardiac pa cemaker in situ 321289413 Z95.0 - Recent interrogat ion 08/17/2023 with good battery life; leads functionin g appropriat renan. Health Concerns Section Related Observation LastModified by Organization Detai ls LastModified Time None Recorded Concern Status LastModified by Organization Details LastModified Time None Recorded Advance Directives Directive None Recorded Payers Insurance Date Sequence Insurance Name Policy Number Policy Meyers Covered Member ID Meyers Member ID Guarantor Name 08/21/2023 [place] (INSTITUTIONA L) Hawa F Fernanda [id number] Hawa Melvi Fernanda 08/21/2023 1 [facility] BY PENDING SALE TO [facility] (MEDICARE REPLACEMENT/A DVANTAGE - HMO) Hawa F Fernanda [id number] Hawa Melvi Fernanda 09/16/2024 3 [place] Hawa F Fernanda [id number] Hawa Melvi Fernanda 09/16/2024 [place] (INSTITUTION[place] L) Hawa F Fernanda [id number] Hawa Melvi Fernanda 09/16/2024 1 [facility] (MEDICARE REPLACEMENT/A DVANTAGE - HMO) [id number] Hawa Fernanda [id number] Hawa Melvi Fernanda 09/16/2024 1 [facility] (MEDICARE REPLACEMENT/A DVANTAGE - PPO) Hawa F Fernanda [id number] Hawa Melvi Fernanda 08/21/2023 1 [place]) Hawa F Fernanda [id number] Hawa Melvi Fernanda 09/16/2024 3 [place]: BRIAN STU Hawa De La O Fernanda [id number] Hawa Ogden Fernanda 08/21/2023 MEDICARE A-[place]: NOVAmminexS [facility] - [facility] Hawa De La O Fernanda [id number] Hawa Ogden Fernanda 08/21/2023 [place]: (INSTITUTIONA L) Hawa De La O Fernanda [id number] Hawa Ogden Fernanda 08/21/2023 [place]: (INSTITUTIONA L) Hawa De La O Fernanda [id number] Hawa Ogden Fernanda 08/21/2023 1 [facility] (MEDICARE REPLACEMENT/A DVANTAGE - HMO) [id number] Hawa Sullivann [id number] Hawa Ogden Fernanda 12/19/2017 2 UNSPECIFIED REMIT PAYOR Hawa Ogden Fernanda 09/16/2024 2 FOR LIFE ( - MEDICARE SUPPLEMENT) Hawa De La O Fernanda [id number] Hawa Ogden Fernanda 08/21/2023 MEDICARE A-[place]: NOVAmminexS VIAP - [facility] - FQ Hawa De La O Fernanda [id number] Hawa Ogden Fernanda 08/21/2023 [place]: (INSTITUTIONA L) Hawa De La O Fernanda [id number] Hawa Ogden Fernanda 08/21/2023 MEDICARE A-[place]: NOVAmminexS VIAP - [facility] Hawa De La O Fernanda [id number] Hawa Ogden Fernanda 09/16/2024 2 [facility] (MEDICARE REPLACEMENT/A DVANTAGE - HMO) [id number] Hawa De La O Fernanda [id number] Hawa Ogden Fernanda Notes Date Note Type Note Provider Name and Address Organization Details Recorded Time 08/27/2023 text/html Ms. Green 38 y/o presents for a follow up of SVT. Patient reports chest pain at the pacemaker site, palpitations, dyspnea on exertion, dizziness, and ankle edema. Medications reviewed and updated with pharmacy records. Patient reports her activity level has decreased and has frequent rest periods. Nursing note: Ychb-kn-oxue patient education given, Scheduling/coordina ting any ancillary services ordered on this visit. pacemaker interrogation 08/17/2023 Previous encounters with PCP She Hansen, [employer] [address] [place], [address], [facility] 09/03/2023 12:44:31 OBGyn Episode No OBEpisode recorded.
--- OUTSIDE RECORDS SUMMARY | 2025-02-05 04:37 | XMS_ITS | Data Portability ---
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 tablet Take one tablet by mouth three times a day (1 hour before meals) and one tablet at bedtime. 2022 active Not Available Not Available Not Avai lable ondansetr on HCl 4 mg tablet 10/31 completed Not Available Not Available Not Available famotidin e 40 mg tablet TAKE 1 TABLET BY MOUTH, TWICE DAILY. 10/04 completed Not Available Not Available Not Available Medrol (Chase) 4 mg tablets in a dose pack as directed 2022 active Not Available Not Available Not Avai lable Diflucan 150 mg tablet 1 tab PO Q 72 hours x 3 doses 11/27 completed Not Available Not Available Not Available metronida zole 500 mg tablet Take 1 tablet twice a day by oral route for 7 days. 07/27 completed Not Available Not Available Not Available ciproflox acin 250 mg tablet 10/31 completed Not Available Not Available Not Available cimetidin e 800 mg tablet Take 1 tablet every day by oral route. 12/09 completed Not Available Not Available Not Available omeprazol e 40 mg capsule,d elayed release Take 1 capsule every day by oral route. 04/02 completed Not Available Not Available Not Available tramadol 50 mg tablet 50 mg by oral route. 01/11 completed Not Available Not Available Not Available amoxicill in 500 mg tablet Take 2 tablets every 12 hours by oral route. 2022 active Not Available Not Available Not Avai lable carvedilo l 3.125 mg tablet Take 3.125 mg by oral route. 09/19 completed Not Available Not Available Not Available ondansetr on 8 mg disintegr ating tablet 10/31 completed Not Available Not Available Not Available Depo-Medr ol 80 mg/mL suspensio n for injection Take 40 mg by injectio n route. 10/04 completed Not Available Not Available Not Available acetamino phen ER 650 mg tablet,ex tended release 650 mg by oral route. 03/11 completed Not Available Not Available Not Available bisoprolo l fumarate 5 mg tablet TAKE 1 TABLET EVERY DAY BY ORAL ROUTE. active Not Available Not Available No t Available ceftriaxo ne 1 gram solution for injection Take 1 g by injectio n route. 02/22 completed Not Available Not Available Not Available famotidin e 20 mg tablet Take 1 tablet twice a day by oral route. 07/08 completed pt states it makes her gerd worse Not Available Not Available Not Available amitripty line 25 mg tablet Take 1 tablet every day by oral route at bedtime. 08/20 completed Not Available Not Available Not Available methocarb estela 750 mg tablet TAKE 1 TABLET BY MOUTH, 3 TIMES DAILY NEEDED FOR MUSCLE SPASMS. 12/09 completed Not Available Not Available Not Available levothyro xine 50 mcg tablet 50 microgra ms by oral route. 10/26 completed Not Available Not Available Not Available pantopraz ole 40 mg tablet,de layed release Take 1 tablet every day by oral route. 01/30 completed Not Available Not Available Not Available ferrous sulfate 325 mg (65 mg iron) tablet Take 1 tablet 3 times a day by oral route for 90 days. 01/12 completed not covered by insuran e Not Available Not Available Not Available Cipro 500 mg tablet Take 1 tablet every 12 hours by oral route for 5 days. 02/22 completed Not Available Not Available Not Available nitrofura ntoin macrocrys armando 100 mg capsule 100 mg by oral route. 11/03 completed Not Available Not Available Not Available promethaz ine 25 mg tablet Take 1 tablet every 12 hours by oral route as needed for 7 days. 02/22 completed Not Available Not Available Not Available metoprolo l tartrate 50 mg tablet 50 mg by oral route. 10/26 completed Not Available Not Available Not Available nitroglyc elver 0.4 mg sublingua l tablet 0.4 mg by sublingu al route. 03/11 completed Not Available Not Available Not Available cephalexi n 500 mg tablet Take 1 tablet every 8 hours by oral route. 09/10 completed Not Available Not Available Not Available folic acid 1 mg tablet 10/31 completed Not Available Not Available Not Available monteluka st 10 mg tablet TAKE 1 TABLET EVERY DAY IN THE EVENING TO PREVENT ASTHMA AND/OR ALLERGY. 2022 active Not Available Not Available Not Avai lable midodrine 2.5 mg tablet Take 2.5 mg by oral route. 12/28 completed Not Available Not Available Not Available metoprolo l succinate ER 25 mg tablet,ex tended release 24 hr Take 1 tablet twice a day by oral route. 01/30 completed Not Available Not Available Not Available clobetaso l 0.05 % topical ointment APPLY A THIN LAYER TO THE AFFECTED AREA(S) BY TOPICAL ROUTE 2 TIMES PER DAY 05/29 completed Not Available Not Available Not Available dexametha sone sodium phosphate 4 mg/mL injection solution Inject 4 mg by intramus cular route. 10/04 completed Not Available Not Available Not Available azelastin e 137 mcg (0.1 %) nasal spray Mercer 1 spray twice a day by intranas al route as needed for 30 days. 05/29 completed Not Available Not Available Not Available epinephri ne 0.3 mg/0.3 mL injection , auto-inje ctor USE DIRECTED FOR SEVERE ALLERGIC REACTION 2022 active Not Available Not Available Not Avai lable Tenormin 50 mg tablet 50 mg by oral route. 03/11 completed Not Available Not Available Not Available albuterol sulfate HFA 90 mcg/actua tion aerosol inhaler INHALE 1 PUFF BY MOUTH, EVERY 4 TO 6 HOURS NEEDED. 2022 active Not Available Not Available Not Avai lable morphine 15 mg immediate release tablet Take 15 mg by oral route. 04/03 completed dropped as a patient from pain managmen t Not Available Not Available Not Available methadone 5 mg tablet Take 1 tablet twice a day by oral route. 08/[address] Nicholas Not Available Not Available Not Available cefdinir 300 mg capsule 300 mg by oral route. 12/28 completed Not Available Not Available Not Available fluticaso ne propionat e 50 mcg/actua tion nasal spray,taj pension Mercer 1 spray twice a day by intranas al route as needed for 30 days. 12/28 completed Not Available Not Available Not Available loratadin e 10 mg tablet Take 1 tablet every day by oral route. 05/29 completed Not Available Not Available Not Available metoclopr amide 10 mg tablet TAKE 1 TABLET BY MOUTH, 4 TIMES DAILY NEEDED 04/02 completed Not Available Not Available Not Available Tylenol Extra Strength 500 mg tablet Take 2 tablets 4 times a day by oral route as needed. 05/06 completed Not Available Not Available Not Available Bactrim DS 800 mg-160 mg tablet Take 1 tablet every 12 hours by oral route for 10 days. 11/06 completed Not Available Not Available Not Available escitalop emir 10 mg tablet 10 mg by oral route. 10/31 completed Not Available Not Available Not Available Lexapro 20 mg tablet Take 1 tablet every day by oral route. 01/05 completed Not Available Not Available Not Available cyclobenz aprine 5 mg tablet Take 1 tablet 3 times a day by oral route as needed. 03/30 completed Not Available Not Available Not Available metoprolo l tartrate 25 mg tablet Take 1 tablet twice a day by oral route. 08/29 completed switched to metoprol ol succinat e Not Available Not Available Not Available Flovent HFA 220 mcg/actua tion aerosol inhaler Inhale 1 puff twice a day by inhalati on route. 2022 active Not Available Not Available Not Avai lable tizanidin e 4 mg capsule Take 4 mg by oral route. 01/03 completed Not Available Not Available Not Available cephalexi n 750 mg capsule Take 750 mg by oral route. 02/19 completed Not Available Not Available Not Available Chlorasep tic Throat Mercer 1.4 % aerosol Take 1 spray twice a day by mucous route as needed. 01/12 completed Not Available Not Available Not Available Dramamine Less Drowsy 25 mg tablet Take 1 tablet 3 times a day by oral route as needed. 04/26 completed Not Available Not Available Not Available Dymista 137 mcg-50 mcg/spray nasal spray 12/28 completed Not Available Not Available Not Available Myrbetriq 25 mg tablet,ex tended release Take 1 tablet every day by oral route. 01/30 completed Not Available Not Available Not Available Narcan 4 mg/actuat ion nasal spray 01/[address] Enriquez Not Available Not Available Not Available Ozempic 0.25 mg or 0.5 mg (2 mg/1.5 mL) subcutane ous pen injector Inject 0.25 mg every week by subcutan eous route. 12/06 completed Pt was unable to tolerate due to vomiting Not Available Not Available Not Available Wixela Inhub 250 mcg-50 mcg/dose powder for inhalatio n Inhale 1 puff twice a day by inhalati on route. 2022 active Not Available Not Available Not Avai lable Vitals Date Recorded Body height Heart rate Body mass index (BMI) Body weight Systolic And Diastolic Provider Name and Address Organization Details Last Updated DateTime 12/09/2022 170.18 cm 98 /min 50.6 kg/m2 623536.3 4 g 138/108 mm[Hg] Paz Naidu [facility] 12/10/2022 09:13:35 Date Recorded Body height Respiratory rate Body mass index (BMI) Body weight Oxygen saturation Heart rate Systolic And Diastolic Provider Name and Address Organization Details Last Updated DateTime 3 171.45 cm 20 /min 49.7 kg/m2 702493. 44 g 97 % 94 /min 123/91 mm[Hg] Jolene Adler [facility] 14:42:22 Date Recorded Body height Heart rate Body temperature Body mass index (BMI) Body weight Oxygen saturation Systolic And Diastolic Provider Name and Address Organization Details Last Updated DateTime 3 170.18 cm 96 /min 96.7 [degF] 51.4 kg/m2 978568. 3 g 96 % 128/74 mm[Hg] Kym Padilla [facility] 3 17:13:46 Date Recorded Body height Heart rate Respiratory rate Body temperature Body mass index (BMI) Body weight Oxygen saturation Systolic And Diastolic Provider Name and Address Organization Details Last Updated DateTime 3 170.18 cm 100 /min 18 /min 98 [degF] 50 kg/m2 245875. 97 g 99.2 % 124/78 mm[Hg] Graciela Saritha [facility] 3 15:28:47 Social History Question Answer Notes LastModified by Organizat ion Details LastModified Time Tobacco Smoking Status Never Smoker Lakeshia lee [facility] 07/08/2022 14:28:16 Are You Blind Or Do You Have Difficulty Seeing? No Information not available 10/10/2022 Is Blood Transfusion Acceptable In An Emergency? Yes Information not available 10/10/2022 What Is Your Level Of Caffeine Consumption? Heavy [email or web address] Information not available 07/08/2022 How Much Tobacco Do You Chew? None Information not available 10/10/2022 Are You Deaf Or Do You Have Serious Difficulty Hearing? No Information not available 10/10/2022 Which Illicit Or Recreational Drugs Have You Used? None Information not available 10/10/2022 Education 12 Information not available 10/10/2022 What Is The Highest Grade Or Level Of School You Have Completed Or The Highest Degree You Have Received? [id number] Information not available 10/10/2022 Hard Of Hearing Or Deaf In One Or Both Ears? Yes Information not available 10/10/2022 Legally Blind In One Or Both Eyes? No Information no t available 10/10/2022 Adopted Yes [email or web address] Information no t available 11/11/2017 How Often Do You Need To Have Someone Help You When You Read Instructions, Pamphlets, Or Other Written Material From Your Doctor Or Pharmacy? 1-Never [email or web address] Information not available 11/03/2017 What Was The Date Of Your Most Recent Tobacco Screening? 01/30/2023 [email or web address] Information not available 01/30/2023 How Many Children Do You Have? 1 Information not available 10/10/2022 What Is Your Relationship Status? Unknown [email or web address] Information not available 07/27/2021 Relationship Status Single Information not available 10/10/2022 Do You Use Your Seat Belt Or Car Seat Routinely? Yes Information not available 10/10/2022 Are You Sexually Active? No Information not available 10/10/2022 Do You Have Smoke And Carbon Monoxide Detectors In Your Home? Yes Information not available 10/10/2022 Are You Passively Exposed To Smoke? Yes Information no t available 10/10/2022 How Much Tobacco Do You Smoke? No [email or web address] Information not available 01/03/2021 Has Tobacco Cessation Counseling Been Provided? Yes [email or web address] Information not available 01/30/2023 On What Date Was Tobacco Cessation Counseling Provided? 01/30/2023 Information not available 01/30/2023 How Many Years Have You Smoked Tobacco? 0 Has Tried Before. Information not available 10/10/2022 Do You Have Difficulty Walking Or Climbing Stairs? No Information not available 10/10/2022 Sex: Female Functional Status Question Answer Note LastModified by Organizat ion Details LastModified Time Do you use any illicit or recreational drugs? No Information not available 10/10/2022 Do you or have you ever used any other forms of tobacco or nicotine? No Information not available 10/10/2022 What is your level of alcohol consumption? None [email or web address] Information not available 01/14/2018 Are you currently employed? No Information not available 10/10/2022 Are you able to walk independently without assistance or assistive devices? [email or web address] Information not available 10/10/2022 Do you have difficulty doing errands alone? No Information not available 10/10/2022 Do you have difficulty dressing, bathing, grooming, or toileting? No Information not available 10/10/2022 What is your exercise level? Occasional [email or web address] Information not available 11/11/2017 Mental Status Question Answer Note LastModified by Organization D etails LastModified Time Do you have difficulty concentrating, remembering or making decisions? No Information no t available 10/10/2022 Family History Relationship Description Onset Age of this Age Resolved Age Notes LastModified by Organization Details LastModified Time Mother Kidney disease 30 [email or web address] Not available 2017 09:21:36 Mother Congestive heart failure Not available 15:01:11 Mother Neoplasm of brain Not available 15:01:12 Sister Murmur Not availa ble 10/10/2022 15:01:12 Medical History Condition Response Congestive Heart Failure (CHF) Y Other Y Back Problems Y Asthma Y Gynecological History Statement/Question Response Abnormal Pap N Flow Heavy Date of LMP 09/03/2021 STIs/STDs N HPV Vaccine N Duration of Flow (days) 4 Age at Menarche 12 Current Control Method Abstinence Age at First Child 32 Frequency of Cycle (Q days) 30 Sexually Active? N Sexual Problems? N LMP Approximate Hormone Replacement Therapy N Obstetrics History GPAL:G 1 P 1 0 0 1 Type Value Full Term 1 Living 1 Total 1 Immunizations Vaccine Type Date Status Note Provider Nam e and Address Organization Details Recorded Time Tdap 12/16/2015 completed Not Available [facility] 02/18/2023 03:46:47 MMR 03/31/2009 completed Not Available [facility] 02/18/2023 03:46:47 Tdap 03/31/2009 completed Not Available [facility] 02/18/2023 03:46:47 Novel influenza-H1N1 -09 03/24/2009 completed Not Available [facility] 03:46:47 Hep B, adult 04/29/2007 completed Not Available [facility] 02/18/2023 03:46:47 influenza, split (incl. purified surface antigen) 03/24/2009 completed Not Available [facility] 03:46:47 MMR 04/29/2007 completed Not Available [facility] 02/18/2023 03:46:47 Past Encounters Encounter ID Performer Location Encounter Start Date Encounter Closed Date Diagnosis/Indication Diagnosis SNOMED-CT Code Diagnosis ICD10 Code Diagnosis IMO Codes Diagnosis Note [id number] Mallika Walters APRN [facility]. [address] [place] [address] 10/31/2017 17:42:18 11/03/2017 08:27:09 Low back pain 166956435 M54.5 fall W19.XXXA [id number] Mallika Walters APRN [facility]. [address] [place], [place] [address] [address] 11/03/2017 09:17:40 11/04/2017 08:36:14 Chronic hypotension 81496779 I95.89 Asthma 721909761 J45.90 9 fall W19.XXXA Low back pain 713325444 M54.5 [id number] Mallika Walters APRN [facility]. [address] [place] [address] [place] [address] 11/04/2017 15:33:55 11/05/2017 14:49:50 Low back pain 449780533 M54.5 Improved. Nearly resolved. Ok to return to work without restrictio ns on 11/07/17- note handed to patient. [id number] Maximo Tan MD [facility]. [address] [place] [address] [address] [place] [address] 11/11/2017 08:55:56 11/11/2017 11:33:39 Depression screening positive 5775610119 40215 R45.89 PHQ-2 positive, PHQ-9 score of 5, not consistent with depression , Congestive heart failure 10372722 I50.9 Managed by cardiology , will request records, continue present management per cardiology Chronic hypotension 7754 5000 I95.89 Managed by cardiology , will request records, continue present management per cardiology Heart murmur 57541693 R0 1.1 Managed by cardiology , will request records, continue present management per cardiology Postural o rthostatic tachycardia syndrome 308781104 I95.1 Managed by cardiology , will request records, continue present management per cardiology Idiopathic scoliosis 203 331656 M41.119 XR done today Asthma 204996619 J45.90 9 stable, controlled with ventolin, continue Injury of nervous system 204708748 T14.90XD stable- from childhood trauma, patient refuses to discuss injury or symptoms Hypoglycemia 959154333 E 16.2 stable- asymptomat ic Migraine 49958007 G43.90 9 Migraines have worsened recently and patient notes an abnormal CT of head about 15 years ago, she would like new CT for monitoring Anxiety 14197566 F41.9 stable, no SI or HI, patient refusing treatment saying medication s never helps, labs today Toeing-in 46083539 M20.5 X9 Was referred to podiatry per patient August of last year but apt was canceled needs new apt [id number] Maximo Tan MD [facility]. [address] [place] [address] [place] [address] 11/25/2017 08:35:50 11/25/2017 14:27:27 Chronic hypotension 97882363 I95.89 Managed by cardiology , will request records, continue present management per cardiology Idiopathic scoliosis 203 104399 M41.119 reviewed results, recommend spine surgery referral Postural o rthostatic tachycardia syndrome 017954061 I95.1 Managed by cardiology , will request records, continue present management per cardiology Allergic r eaction to bee sting 167296076 T63.444D needs epipen refill Iron defic iency anemia 68043301 D50.9 recommend iron supplement with vit C and follow up in 3 months to recheck Moderate r ecurrent major depression 65425606 F33.1 stable, continue lexapro Asthma 374291485 J45.90 9 stable, controlled with ventolin, continue Insomnia 165976749 G47.0 0 Sleep medicine referral [id number] Mallika Walters APRN [facility]. [address] [place] [address] 12/16/2017 17:09:09 12/16/2017 18:09:37 Acute pharyngitis 627706117 J02.9 [id number] Maximo Tan MD [facility]. [address] [place] [address] 01/05/2018 11:13:11 01/05/2018 14:31:08 Iron deficiency anemia 83304268 D50.9 check cbc Hypoglycemia 782998388 E 16.2 recommend patient follow up next week with blood sugar report to review , A1c today Chronic low back pain 27 2044083 M54.5 Worsening, patient says PT not helping, cyclobenza corona is only thing that helps, will refill, i recommend pain management referral Scoliosis deformity of spine 025457930 M41.9 Recommend neurosurg referral. [id number] Maximo Tan MD [facility]. [address] [place] [address] 01/12/2018 09:50:11 01/12/2018 11:14:15 Mood disorder 70750664 F39 PHQ-9 score of 13, ANNAMARIE-7 score of 21, Positive Mood Disorder Questionna cuhck, I suspect mood disorder, I recommend psychiatry referral Chronic low back pain 27 0749244 M54.5 Pain management apt pending, MRi ordered- patient missed apt two times, recommend patient reschedule and keep apt for [place] Iron defic iency anemia 76285182 D50.9 CBC reviewed, not taking iron, hgb normal, will recheck in 3 months Hypoglycemia 527966336 E 16.2 A1c reviewed, did not bring sugar log, recommend small frequent high protein meals Scoliosis deformity of spine 973851376 M41.9 Neurosurg requires MRi to schedule apt, MRi ordered patient no showed twice, I strongly recommende d patient reschedule MRI and keep apt [id number] MD [facility] [address] [place] [address] [place] [address] 01/14/2018 11:23:26 01/14/2018 13:08:38 Dyspnea on exertion 63424372 R06.09 Insomnia 689836550 G47.0 0 Sleep apnea 26127954 G47 .30 Body mass index 30+ - obesity 142653515 Z68.39 [id number] Maximo Tan MD [facility]. [address] [place] [address] [place] [address] 02/16/2018 08:56:36 02/16/2018 10:07:39 Mood disorder 38390426 F39 Referred to [facility], patient new referral to [facility] in [facility] Chronic low back pain 27 7249234 M54.5 Referred pain management , office has been trying to call her and unable to reach her, MRi pending, patient says she cant do it with her schedule, I recommend she call pain management clinic, patient given print out with contact info, and schedule apt, Pain in right knee 78191 54809 96954 M25.561 XR done today, recommend Ortho referral Pain in left knee 682897 8961 90941 M25.562 XR done today, recommend Ortho referral [id number] Maximo Tan MD [facility]. [address] [place] [address] [place] [address] 02/26/2018 09:57:05 02/26/2018 10:46:38 Acute maxillary sinusitis 55017590 J01.00 [id number] Maximo Tan MD [facility]. [address] [place] [address] [place] [address] 03/04/2018 15:29:31 03/04/2018 16:50:52 Chronic pain syndrome 272369873 G89.4 Recommend patient keep pain management apt. recommend tylenol extra strength as needed up to 4 x daily and amitriptyl ine 25 mg before bed. follow up in 1 month [id number] Maximo Tan MD [facility]. [address] [place] [address] [place] [address] 03/12/2018 10:02:11 03/12/2018 10:56:32 Chronic pain syndrome 415847234 G89.4 Increased dizziness with amitriptyl ine, recommend stop medication , per patient she cannot take gapapentin , tylenol, nsaids, hydrocodon e or codeine due to them causing her heart to stop I counseled patient i have no other medication to offer her and i recommend she keep pain management apt Apr 07, Dizziness 648484037 R42 Patient is seeing cardiologi today, i strongly recommend she tell him about dizziness episodes Idiopathic peripheral neuropathy 24897404 G60.9 Per patient she saw neurologis chucho who retired int he past, she would like new referral [id number] MD [facility] [address] [place] [address] [place] [address] 03/30/2018 14:21:23 03/30/2018 15:50:22 Sleep apnea 72989223 G47.30 Chronic pain 69394953 G8 9.29 Insomnia 087542383 G47.0 0 Dyspnea on exertion 6084 5006 R06.09 Body mass index 30+ - obesity 311132153 Z68.39 [id number] Isela Butts APRN [facility]. [address] [place] [address] 05/06/2018 15:30:53 05/07/2018 17:22:07 Fever 481298054 R50.9 Dizziness 389474660 R42 Influenza caused by Influenza A virus 884046798 J09.X2 [id number] MD [facility] [address] [place] [address] [place] [address] 07/06/2018 09:38:59 07/06/2018 10:27:32 Obstructive sleep apnea syndrome 61333064 G47.33 Seasonal a llergic rhinitis 787523370 J30.2 Dyspnea on exertion 6084 5006 R06.09 Mild inter mittent asthma 875673405 J45.20 [id number] Maximo Tan MD [facility]. [address] [place] [address] 08/20/2018 15:39:23 08/20/2018 17:00:30 Right upper quadrant pain 755765302 R10.11 6 weeks of pain, radiates from rlq around side and into back, no dysuria, no hematuria, no fever, no vomiting or diarrhea, has nausea, recommend labs as ordered and abdominal US Pain in pelvis 31057878 R10.2 UA , urine hcg, recommend pelvic US At high ri sk of sexually transmitted infection 919117422 Z91.89 STI labs requested by amanda [id number] Maximo Tan MD [facility]. [address] [place] [address] [place] [address] 08/25/2018 13:32:04 08/25/2018 14:35:06 [id number] Maximo Tan MD [facility]. [address] [place] [address] [place] [address] 12/28/2018 10:59:40 12/28/2018 14:47:05 Acute maxillary sinusitis 94590476 J01.00 Acute laryngitis 3396188 J04.0 Cough 64783461 R05 reviewed XR, no acute findings, will wait for radiologis t report [id number] Maximo Tan MD [facility]. [address] [place] [address] [place] [address] 01/14/2019 15:17:24 01/14/2019 16:59:56 Nausea and vomiting 97488941 R11.2 Urinary tr act infectious disease 38831873 N39.0 Unprotecte d sexual intercourse 6532498 Z72.51 Urine hcg negative but exposure occurred only 2 weeks ago, may be too early to have positive test, recommend she return to clinic in 2 weeks if she doesnt have menstruati on [id number] Mallika Walters APRN [facility]. [address] [place] [address] [place] [address] 02/22/2019 17:28:31 02/23/2019 08:36:30 Renewal of prescription 243746343 Z76.0 Seasonal a llergic rhinitis 088831122 J30.2 Asthma 105393113 J45.90 9 Maxillary sinusitis 8834 8008 J32.0 [id number] Maximo Tan MD [facility]. [address] [place] [address] [place] [address] 07/27/2019 11:19:58 07/27/2019 14:44:00 Pruritus of vulva 35446053 L29.2 Recommend stop shaving and use clobetasol ointment BID , follow up in 1 month [id number] Maximo Tan MD [facility]. [address] [place] [address] Sultana LANTIG[place] [address] 09/20/2019 14:26:26 09/21/2019 13:29:10 Mild persistent asthma 008141230 J45.30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 situ 832102645 Z95.0 see PPM interrogat ion 10/2022, China Manning [employer] called and discussed interrogat ions with med[employer]onic rep Renee Rodartenet and reports no concerns on interrogat ion and device functionin g appropriat renan Nausea and vomiting 1691999 R11.2 reports compliance with pantoprazo le-will trial sucralfate and recommend follow up with pcp Pain in upper limb 28668 6003 M79.602 Echocardio gram abnormal 483366094 R93.1 recent echo 07/2022 notes LVEF 60-65% with moderate size secundum atrial septum defect with predominan tly left to right shunting across the atrial septum [id number] CAROL PARRISH NP [facility] [address] [place] [address] 12/09/2022 16:01:12 12/25/2022 13:27:10 Mastodynia of bilateral breasts [id number] 6612729 N64.4 --bilatera l nodular breasts, very tender to palpation. [id number] Maximo Tan MD [facility] [address] [place] [address] 12/24/2022 16:56:08 12/31/2022 14:37:44 Chronic neck pain for greater than 3 months [id number] 14965 M54.2 12/09/22 IMPRESSION : 1. Mild nonspecifi c reversal of the normal cervical lordosis. This may be positional but can also be seen in cervical muscle strain or spasm. Correlate clinically . Taking methocarba mol 1000 mg qid, ibuprofen as needed, aleve and ice worsening pain radiating down into backRecomm end PT referral Cardiomyopathy 09763196 I42.9 patient wants second opinion from cardiology so they can clear her for gyne surgery to have left varian cyst removed as patient is currently reporting significan t symptoms from cyst Cyst of ovary 77604125 N 83.209 patient requesting second opinion from gynecology in alt home, was seeing Dr Victoria in [place] CT Abd pelvis 10/18/22 IMPRESSION : 1. 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 The mass measures approximat renan 5.8 cm in transverse diameter, 4.1 cm in AP diameter and 5.1 cm in coronal diameter. 2. Partially configurat ion of the kidneys. 3. Borderline hepatic enlargemen t with no hepatic mass seen. [id number] Bronwyn Kong APRN [facility]. [address] [place] [address] 01/30/2023 15:08:25 02/10/2023 12:35:41 Pain in throat 939546124 R07.0 01-30-23. acute problem. treatment initiated as noted below. Streptococ imelda sore throat 34871277 J02.0 acute problem. treat with amoxicilli n. [id number] [facility]. [address] [place] [address] 05/01/2023 10:42:56 05/01/2023 11:48:31 [id number] [facility]. [address] [place] [address], [place] [address] 05/16/2023 11:46:26 05/16/2023 11:52:16 [id number] She Hansen APRN [facility] CArdiolog y. [address] [place] [address] [place] [address] 08/27/2023 13:59:32 08/27/2023 16:21:42 Health Concerns Section Related Observation LastModified by Organization Detai ls LastModified Time None Recorded Concern Status LastModified by Organization Details LastModified Time None Recorded Advance Directives Directive None Recorded Payers Insurance Date Sequence Insurance Name Policy Number Policy Meyers Covered Member ID Meyers Member ID Guarantor Name 08/21/2023 [place]: (INSTITUTIONA L) Hawa Green [id number] Hawa Green 08/21/2023 1 [facility] [facility] (MEDICARE REPLACEMENT/A DVANTAGE - HMO) Hawa Green [id number] Hawa Green 09/16/2024 3 [place] (MEDICARE) Hawa Green [id number] Hawa Green 09/16/2024 MEDICAID-[place]: (INSTITUTIONA L) Hawa F Fernanda [id number] Hawa Melvi Fernanda 09/16/2024 1 [facility] (MEDICARE REPLACEMENT/A DVANTAGE - HMO) [id number] Hawa Fernanda [id number] Hawa Melvi Fernanda 09/16/2024 1 [facility] (MEDICARE REPLACEMENT/A DVANTAGE - PPO) Hawa F Fernanda [id number] Hawa Melvi Fernanda 08/21/2023 1 [place] (MEDICARE) Hawa F Fernanda [id number] Hawa Melvi Fernanda 09/16/2024 3 MED[place]: BRIAN STU Hawa F Fernanda [id number] Hawa Melvi Fernanda 08/21/2023 MEDICARE A-AR: Accept Software [facility] Hawa F Fernanda [id number] Hawa Melvi Fernanda 08/21/2023 MEDICAID-[place]: (INSTITUTIONA L) Hawa F Fernanda [id number] Hawa Melvi Fernanda 08/21/2023 MEDICAID-[place]: (INSTITUTIONA L) Hawa F Fernanda [id number] Hawa Melvi Fernanda 08/21/2023 1 [facility] (MEDICARE REPLACEMENT/A DVANTAGE - HMO) [id number] Hawa F Fernanda [id number] Hawa Melvi Fernanda 12/19/2017 2 UNSPECIFIED REMIT PAYOR Hawa Melvi Fernanda 09/16/2024 2 FOR LIFE ( - MEDICARE SUPPLEMENT) Hawa F Fernanda [id number] Hawa Melvi Fernanda 08/21/2023 MEDICARE A-AR: [employer] - [facility] Hawa F Fernanda [id number] Hawa Melvi Fernanda 08/21/2023 MEDICAID-[place]: (INSTITUTIONA L) Hawa F Fernanda [id number] Hawa Melvi Fernanda 08/21/2023 MEDICARE A-AR: [employer] - [facility] Hawa Green [id number] Hawa Green 09/16/2024 2 [facility] [facility] (MEDICARE REPLACEMENT/A DVANTAGE - HMO) [id number] Hawa Green [id number] Hawa Green Notes Date Note Type Note Provider Name and Address Organization Details Recorded Time 12/09/2022 text/html ROS as noted in the HPI 12/09/2022-Hawa presents for ongoing pain to her left chest, neck and left shoulder. Reports has been ongoing since July 2022 s/p pacemaker placement. She reports pain is a burning sensation and intensifies when turning her head to the left. She is unable to lay on her left side at night due to this discomfort. Continues with dyspnea during moderate exertion. Reports has recently changed asthma inhalers that has helped some with her breathing. She also reports she is needing surgical clearance to have ovarian mass removed. ROS positive for lower extremity edema and palpitations. Has had continued nausea and episode of vomiting along with complaints of abdominal pain. No fever, syncope or diarrhea. EKG performed and reviewed in clinic today. I have personally reviewed prior external chart notes, nurses ROS and reviewed pertinent testing includin11/03/2022 PPM interrogationdual lead pacemaker, est 14.2 years remaining on battery. Device and leads functioning appropriately at this time. x2 Brief SVT-ST episodes noted. CT ABD/pelvis W contrast [id number] ogram [id number] 07/30/2022 Isela Butts, MVA STILL OPERATOR [address] [place], [address], [place] - [facility] 12/09/2022 21:42:30 12/09/2022 text/html Generic HPI TemplateReported by Patient Ms Green is a 37 yo female who lives in [place]. She is a pt of Dr Tan. She comes in today 12/09/22 with c/o bilateral breast pain. She reports no no lumps, nipple discharge, nipple retraction, skin dimpling or other breast symptoms. No breast or arm swelling. No change in BSE. She has been referred to plastic surgery in [place] for macromastia related chronic neck and back pain. But was declined due to BMI. She has a pacemaker and is followed by Dr Lyle. She has never had a mammogram or breast US. She does not have a personal history of cancer. She reports her mother had breast cancer in her late 30's and 2 sisters possibly had cervical cancer. She is at high risk for breast cancer using the [employer] online Peterlaurel Croninkourtney V8 risk paver layer @34.1%. Age: 37Age at menarche: 12Age at first : 32Age at menopause: preHeight: 5ft 7inWeight: 323lbsHRT: never BIRADS density: unknown Personal history significant for:HX cancer: noHx of breast biopsy: noFamily history significant for breast or ovarian cancer:Mother- late 30'sHx Genetic mutation: noFHx of other cancer: possible 2 sisters with cervical cancerAshkenazi Muslim inheritance: no Breast cancer risks:Risk after 10 years: 3%Lifetime risk: 34.1%Probability of BRCA1 gene: 0.4%Probability of BRCA2 gene: 0.58% CAROL PARRISH NP [address] [place], [address], [facility] 12/10/2022 10:42:00 12/24/2022 text/html Pt presents today to talk abt getting referral to neuro surg. Pt would also like to talk abt bladder issues. Pt states that her symptoms were managed, but now they seem to have worsen. She also stated she is experiencing no warning sign of when she needs to urinate, which is new for her. Maximo Tan MD [address] [place], [address], [facility] 12/24/2022 18:06:45 01/30/2023 text/html ROS as noted in the HPI 37 y/o female c/o sore throat, cough , body aches and headache x 1.5 weeks, tested neg for covid at home Bronwyn Kong APRN [address] [place], [address], [facility] 01/30/2023 16:29:35 OBGyn Episode Ob Episode Information Episode Created Date Number of Fetuses Patient Bloodtype Patient rh Status Prepregnancy Weight lbs Domestic Partner Domestic Partner Phone Father Name Warning Coordination Meteorologist Status 01/04/20 21 1 CLOSED Fetus Data First Name Last Name Admitted to NICU Weight (g) Sex Living Outcome Pediatric Complications Fetus ID Race Codes Race Delivery Type 3401.94 M Full Term [id number] Vaginal Delivery Matias Calculation Initial Matias Date Initial Exam Date Initial Exam Provider Initial Ultrasound Date Last Menstrual Period Date Ultra Sound Weeks Gestation 0 Eighteen To Twenty Week Matias Update Ultra Sound Date Fundal Height At Umbil Quickening Date Ultra Sound Latest Weeks Gestation Final Matias Confirmed By Final Matias Confirmed Date Final Matias Date Ultra Sound Latest Days Gestation 0 0 Menstrual History Last Menstrual Date Menses Monthly On Bcp Conception Prior Menses Frequency Hcg Plus Date Menarche Onset Age Delivery Information Delivery Date Delivery Type Labor Anesthesia Weeks Gestation Incision Type Labor Labor Length Hrs Delivered By Post Complications Tubal Sterilization Discharge Date Comments 8 41 lives with father Discharge Information Feeding Method Contraceptive Method Maternal HG B and HCT Levels
--- OUTSIDE RECORDS SUMMARY | 2025-02-05 04:37 | XMS_ITS | Clinical Summary ---
Author Organization [facility] Address [address] [place] [address] Care Team Providers Care Medical Library Assistant Name Role Phone Unavailable Primary Care Provider Unavailabl e Allergies Active Allergy Reactions Criticality Noted Date Comments Aripiprazole 01/16/2017 Gabapentin 01/16/2017 Hydrocodone 01/16/2017 Melatonin 01/16/2017 Sertraline 01/16/2017 Topiramate 01/16/2017 Medications ondansetron (ZOFRAN) 8 MG tablet Take 8 mg by mouth every 8 (eight) hours as needed for nausea. Active albuterol (PROVENTIL) 2.5 mg /3 mL (0.083 %) nebul soln Take 2.5 mg by nebulization every 6 (six) hours as needed for wheezing. 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 Scoliosis 01/16/2017 Bilateral club feet 01/16/2017 Hypoglycemia 01/16/2017 Social History Tobacco Use Types Packs/Day Years Used Date Smoking Tobacco: Never Smokeless Tobacco: Never Alcohol Use Standard Drinks/Week Comments No 0 (1 standard drink = 0.6 oz pur e alcohol) Comments Unknown Sex and Gender Information Value Date Recorded Sex Assigned at Not on file Legal Sex Female 5:42 PM CDT Gender Identity Not on file Sexual Orientation Not on file Plan of Treatment Health Maintenance Due Date Last Done Comments Annual Wellness Exam 1987 Hepatitis C Screening 1987 Anxiety Screening 1995 HIV Screening 2002 Depression Screening 2005 Hepatitis B Vaccine (1 of 3 - 19+ 3-dose series) 2006 TDAP/DTaP/TD Vaccines (1 - Tdap) 2006 Pap Smear 02/25/2008 Cervical Cancer Screening (30-65) 2017 HPV/Cotest 2017 COVID-19 Vaccine (1 - 2024-2 5 season) 2024 Influenza Series (#1) 2024 Meningococcal B Vaccine Aged Out No l onger eligible based on patient's age to complete this topic Pneumococcal Vaccine 0-50 years Aged Out No longer eligible based on patient's age to complete this topic Insurance [address] [place] [address] MEDICARE PART A & B [place] MEDICA[place]-NO REFERRAL REQ
[2025-02-05 04:40] VITALS: BP 118/88; PULSE 84; RESP 18; O2SAT 97
--- NOTE | 2025-02-05 04:50 | CTR_ITS ---
PROCEDURE INFORMATION: Exam: CTA Chest With Contrast Exam date and time: 02/05/2025 5:59 AM Age: 39 years old Clinical indication: Shortness of breath; Prior surgery; Surgery date: 6+ months; Surgery type: Gb, pacemaker; Additional info: Abrupt pleuritic cp, SOB, current cancer TECHNIQUE: Imaging protocol: Computed tomographic angiography of the chest with contrast. Exam focused on the arteries. 3D rendering (Not supervised by radiologist): MIP and/or 3D reconstructed images were created by the technologist. Radiation optimization: All CT scans at this facility use at least one of these dose optimization techniques: automated exposure control; mA and/or kV adjustment per patient size (includes targeted exams where dose is matched to clinical indication); or iterative reconstruction. Contrast material: OMNI 350; Contrast volume: 110 ml; Contrast route: INTRAVENOUS (IV); COMPARISON: CT chest radhapel w/*[id number] 06/20/2024 11:41 AM RADIATION DOSE METRICS: Total DLP (mGy-cm): 1109.67 FINDINGS: Tubes, catheters and devices: Pacemaker seen in the left chest. Pulmonary arteries: Normal. No pulmonary emboli. Aorta: Unremarkable. No aortic aneurysm. No aortic dissection. Lungs: Minimal streaky bilateral dependent atelectasis seen. No consolidation. No discrete suspicious lung nodule or mass identified. Pleural spaces: Unremarkable. No pneumothorax. No pleural effusion. Heart: Unremarkable. Normal RV/LV ratio of 0.9. No coronary atherosclerotic calcifications seen. No cardiomegaly. No pericardial effusion. Lymph nodes: Unremarkable. No enlarged lymph nodes. Gallbladder and biliary ducts: The gallbladder has been surgically removed. Bones/joints: Unremarkable. No acute fracture. Soft tissues: Unremarkable. CT/CT angio chest PE protcl [id number] IMPRESSION: No pulmonary embolus or other acute pathology in the chest.
--- NOTE | 2025-02-05 04:50 | XRR_ITS ---
PROCEDURE INFORMATION: Exam: XR Chest Exam date and time: 02/05/2025 4:57 AM Age: 39 years old Clinical indication: Chest pressure; Prior surgery; Surgery date: 6+ months; Surgery type: Defibrillator. Gb; C/O chest pain post defibrillator firing. ; Additional info: Cp TECHNIQUE: Imaging protocol: Radiologic exam of the chest. Views: 1 view. COMPARISON: CT chest abdpel w/*[id number] 06/20/2024 11:41 AM FINDINGS: Tubes, catheters and devices: Cardiac pacing device is again seen projecting over the left chest. Lungs: Low lung volumes. Minimal streaky bibasilar atelectasis noted. No consolidation. Pleural spaces: Unremarkable. No pleural effusion. No pneumothorax. Heart/Mediastinum: Unremarkable. No cardiomegaly. Bones/joints: Unremarkable. XR/XR chest 1V portable [id number] IMPRESSION: No acute findings.
[2025-02-05 04:58] LABS: Hematocrit 37.4 % (36-47); Hemoglobin 12.00 g/dL (11.27-16.99); Mean Corpuscular HGB Conc 32.1 g/dL (30-55); Mean Corpuscular Hemoglobin 26.3 pg (27-33); Mean Corpuscular Volume 82.0 fl (85-98); Nucleated Red Blood Cells % 0 %; Platelet Count 307 10^3/cmm (157-399); Red Blood Count 4.56 10^6/uL (3.85-5.65); White Blood Count 9.97 10^3/uL (3.29-11.43)
[2025-02-05] MEDS: morphine 4 mg/mL SDV 1 mL IVP (05:00)
[2025-02-05] MEDS: ondansetron 2 mg/ML SDV 2 mL 4 MG IVP (05:00)
[2025-02-05 05:12] LABS: Troponin(5th) Baseline < 6 ng/L (0-10)
[2025-02-05 05:19] LABS: Alanine Aminotransferase 9 U/L (0-33); Albumin Level 3.7 g/dL (3.5-5.2); Alkaline Phosphatase 71 U/L (35-105); Anion Gap 15.3 (5-19); Aspartate Amino Transferase 11 U/L (0-32); Blood Urea Nitrogen 18 mg/dL (6-20); CRP High Sensitivity Cardiac 0.630 mg/dL (0.0-0.3); Calcium 8.2 mg/dL (8.5-10.5); Carbon Dioxide 19 mmol/L (22-29); Chloride 109 mmol/L (98-107); Globulin 2.4 g/dL (1.3-4.6); Glucose 114 mg/dL (65-115); Lipase 29 U/L (13-60); NT Pro B Type Natriuretic Pept 182 pg/mL (0-125); Osmolality Calculated 291 mOsm/kg (285-295); Potassium 4.3 mmol/L (3.5-5.1); Sodium 139 mmol/L (136-145); Total Protein 6.1 g/dL (6.6-8.7)
--- NOTE | 2025-02-05 05:27 | ED_ITS ---
HPI - Chest Pain 2 General: Chief Complaint: Chest Pain Stated Complaint: CP Time Seen by Provider: 02/05/25 04:31 History of Present Illness: Patient is a 39yo female with a history of cervical cancer (status post removal, recurrence on left ovary), possible rheumatoid arthritis, and longstanding cardiac symptoms with PPM placement who presents with acute onset severe, sharp, and throbbing central chest pain radiating to the shoulders and neck, beginning after rest and escalating between 2 and 3 AM to the point of dyspnea. The chest pain has since eased, but she now has new pain radiating from her shoulder to the back of her neck. She also reports chronic pain, frequent headaches, and a history of sleep apnea requiring CPAP (which she finds ineffective due to sinus congestion). She denies fever, recent trauma, or abdominal pain, but notes occasional dry cough and chronic stress related to her work. She has not taken chemotherapy due to intolerance and is awaiting surgery for recurrent ovarian cancer. She is being evaluated for lupus and rheumatoid arthritis, with positive rheumatoid factor but no current treatment. No history of blood clots, but has not been formally evaluated for them. Associated symptoms: Reports dyspnea; Deny abdominal pain, fever(s) or palpitations Related Data Home Medications ?Medication ?Instructions ?Recorded ?Confirmed aspirin 500 mg-sod bicarb 1,985 2 ea PO PRN PRN stomac h acid 06/20/24 06/20/24 mg-citric acid 1,000 mg efferv tablet ([place] Extra Strength) ibuprofen 200 mg capsule (Advil 400 mg PO Q6H PRN Pain 06/20/24 06/20/24 Liqui-Gel) Allergies Allergy/AdvReac Type Severity Reaction Status Date / Time aripiprazole (From Abilify) Allergy Unknown Verified 06/20/24 12:40 aspirin Allergy Unknown Verified 06/20/24 12:40 banana Allergy Unknown Verified 06/20/24 12:40 blueberry Allergy Unknown Verified 06/20/24 12:40 diphenhydramine (From Allergy Unknown Verified 06/20/24 12:40 Benadryl) gabapentin Allergy Unknown Verified 06/20/24 12:40 hydrocodone Allergy Unknown Verified 06/20/24 12:40 quetiapine (From Seroquel) Allergy Unknown Verified 06/20/24 12:40 Review of Systems 2 General: Reports: 10 or more systems reviewed and unremarkable except in HPI and below Const: Denies: fever(s) or chills Eyes: Denies: change in vision or eye discharge Card: Reports: chest pain; Denies: palpitations or swelling of feet/ankles Resp: Reports: dyspnea; Denies: productive cough GI: Denies: abdominal pain or diarrhea Musc: Denies: neck pain or back pain Skin/Breast: Denies: rash or jaundice Neuro: Denies: headache(s), numbness in extremities or weakness in extremities [place]/Lymph: Denies: easy bruising or easy bleeding Physical Exam 2 Narrative: EXAM NARRATIVE: Patient overall well-appearing, afebrile and vital signs stable on arrival, no acute distress. head normocephalic, PERRL, moist mucous membranes, no cervical LAD. breathing comfortably on RA, saturating well, clear BL and no adventitious breath sounds, able to speak in full sentences without getting SOB, no signs of respiratory distress. NSR with no murmurs, no leg swelling, 2+ pulses throughout, good cap refill. Abdomen soft, nontender, nondistended, no localizing or peritonitic signs, no overlying skin changes, no CVA ttp. 4 extremities without apparent deformity or injury. GCS 15, AAOx4, able to answer questions and follow commands appropriately, moving all 4 extremities symmetrically and spontaneoulsy. Normal mood and affect. Course 2 Vital Signs: Vital signs: Vital Signs Temperature 98 F 02/05/25 04:29 Pulse Rate 92 02/05/25 07:20 Respiratory Rate 22 H 02/05/25 07:20 Blood Pressure 114/68 02/05/25 07:20 Pulse Oximetry 96 02/05/25 07:20 Oxygen Delivery Me thod Room Air 02/05/25 06:04 MDM - Chest Pain Medical Decision Making -ddx: PE, PTX, ACS, dysrhytmia, URI, PNA, PPM complication, pleurisy, pericarditis, costochondritis -patient overall well appearing, VSS, afebrile, with abrupt CP->back pain and pleuritic CP in the middle of the night, is supposed to use a CPAP but is not doing doing so, with seeming abrupt sx above and cancer hx, will provide pain control, obtain cardiac lee and CTAPE with her RFs. -patient with negative CTAPE for any VTE, PTX, effusions, PNA or other concerning CV/resp etiology, troponins flat and negative, BNPvery mildly elevated but no signs of fluid overload. HEART score of 1 and EKG nonischemic. pain compltely resolved on exam and with an otherwise reassuring lee she was able to be discharged to [facility] outpatient for her chest pain, strict return precautions given. Lab Data 02/05/25 04:35 02/05/25 04:35 Radiology Impressions Chest CTA 02/05/25 04:50 IMPRESSION: No pulmonary embolus or other acute pathology in the chest. Chest X-Ray 02/05/25 04:50 IMPRESSION: No acute findings. Laboratory Results WBC 9.97 10^3/uL (3.29-11.43) 02/05/25 04:35 RBC 4.56 10^6/uL (3.85-5.65) 02/05/25 04:35 Hgb 12.00 g/dL (11.27-16.99) 02/05/25 04:35 Hct 37.4 % (36-47) 02/05/25 04:35 MCV 82.0 fl (85-98) L 02/05/25 04:35 MCH 26.3 pg (27-33) L 02/05/25 04:35 MCHC 32.1 g/dL (30-55) 02/05/25 04:35 RDW 14.4 % (12.1-15.1) 02/05/25 04:35 Plt Count 307 10^3/cmm (157-399) 02/05/25 04:35 MPV 9.6 fL (7.4-10.4) 02/05/25 04:35 Neut % (Auto) 58.2 % 02/05/25 04:35 Lymph % (Auto) 32.3 % 02/05/25 04:35 [place] % (Auto) 6.3 % 02/05/25 04:35 Eos % (Auto) 2.6 % 02/05/25 04:35 Baso % (Auto) 0.3 % 02/05/25 04:35 Neut # (Auto) 5.80 10^3/uL (1.8-7.7) 02/05/25 04:35 Lymph # (Auto) 3.2 10^3/uL (0.8-4.8) 02/05/25 04:35 [place] # (Auto) 0.6 10^3/uL (0.2-0.9) 02/05/25 04:35 Eos # (Auto) 0.3 10^3/uL (0.0-0.8) 02/05/25 04:35 Baso # (Auto) 0.0 10^3/uL (0.0-0.1) 02/05/25 04:35 Nucleated RBC % (auto) 0 % 02/05/25 04:35 Nucleated RBCs # 0.0 /100WBC 02/05/25 04:35 Sodium 139 mmol/L (136-145) 02/05/25 04:35 Potassium 4.3 mmol/L (3.5-5.1) 02/05/25 04:35 Chloride 109 mmol/L (98-107) H 02/05/25 04:35 Carbon Dioxide 19 mmol/L (22-29) L 02/05/25 04:35 Anion Gap 15.3 (5-19) 02/05/25 04:35 BUN 18 mg/dL (6-20) 02/05/25 04:35 Creatinine 0.9 mg/dL (0.5-0.9) 02/05/25 04:35 GFR Calculation 70.5 mL/min (90-130) L 02/05/25 04:35 Glucose 114 mg/dL (65-115) 02/05/25 04:35 Calculated Osmolality 291 mOsm/kg (285-295) 02/05/25 04:35 Calcium 8.2 mg/dL (8.5-10.5) L 02/05/25 04:35 Total Bilirubin 0.3 mg/dL (0.15-1.2) 02/05/25 04:35 AST 11 U/L (0-32) 02/05/25 04:35 ALT 9 U/L (0-33) 02/05/25 04:35 Alkaline Phosphatase 71 U/L (35-105) 02/05/25 04:35 Troponin T Baseline < 6 ng/L (0-10) 02/05/25 04:35 Troponin T 120 Minute < 6.0 ng/L (0-10) 02/05/25 06:32 Delta Troponin T 0 ABS# (0-10) 02/05/25 06:32 C-React Prot High Sens 0.630 mg/dL (0.0-0.3) H 02/05/25 04:35 NT-Pro-B Natriuret Pep 182 pg/mL (0-125) H 02/05/25 04:35 Total Protein 6.1 g/dL (6.6-8.7) L 02/05/25 04:35 Albumin 3.7 g/dL (3.5-5.2) 02/05/25 04:35 Globulin 2.4 g/dL (1.3-4.6) 02/05/25 04:35 Lipase 29 U/L (13-60) 02/05/25 04:35 All radiology interpretation(s) finalized by discharge Clincial Decision Support The following clinical decision support tools were used to aid in care of the patient HEART Score -> History: Slightly Suspicous, EKG: Normal, Age: Less than 45 yrs, Risk Factors: 1 or 2 Risk Factors, Troponin: Baseline Trop <16 ng/L. Resulting HEART Score: 1. Discharge Plan Discharge Patient Disposition: Home Clinical Impression: Atypical chest pain Condition: Stable Prescriptions: No Action ibuprofen [Advil Liqui-Gel] 200 mg Capsule 400 mg PO Q6H PRN (Reason: Pain) [facility] Extra Strength 500-1,985-1,000 mg Tablet, Effervescent 2 ea PO PRN PRN (Reason: stomach acid) Discharge Orders: Discharge ED (Routine); Ordered 02/05/25 Ordered By: Juliano Toribio Referrals: Gallo Recio MD [Referring, Family Practice] Discharge Diet: Usual diet Discharge Activity: Increase activity as tolerated Patient Instructions: Opioid Safety, Pain Management, Patient Portal & Keegan Instructions Activity Restrictions/Additional Instructions: You were seen for your chest pain, your evaluated with labs, chest x-ray, EKG and a CT scan that were ultimately reassuring for no emergent cardiac, respiratory or infectious conditions today, you improved with medications and were deemed stable to be discharged home. In the future, record the surrounding events still when this pain occurs. 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 Return to the ED with severe worsening of the pain, breathing difficulties, episodes of passing out, fevers, any other emergent concerns. Stand Alone Forms: Work/School Release Print Language: Uzbek Coding Level of Care Code ED Encyclopedia Research Worker for Chg Fwd Heart Score HEART Score Components History: Slightly Suspicous EKG: Normal Age: Less than 45 yrs Risk Factors: 1 or 2 Risk Factors Troponin: Baseline Trop <16 ng/L HEART Score RESULT HEART Score: 1
[2025-02-05 06:04] VITALS: BP 112/73; PULSE 86; RESP 16; O2SAT 98
[2025-02-05] MEDS: iohexol 350 mg/mL 500 mL Btl (per mL) IV (06:08)
[2025-02-05 07:00] VITALS: RESP 22; O2SAT 98
[2025-02-05 07:00] LABS: Troponin 5 2HR < 6.0 ng/L (0-10); Troponin 5 2HR Delta 0 ABS# (0-10)
[2025-02-05] MEDS: morphine 4 mg/mL SDV 1 mL 2 MG IVP (07:00)
[2025-02-05 07:20] VITALS: BP 114/68; PULSE 92; RESP 22; O2SAT 96
== END 2025-02-05 07:20 | disposition home or self-care (01) ==
PROVIDERS: Emergency Provider Student in an Organized Health Care Education/Training Program; PCP Nurse Practitioner Family
DX: R07.89 Other chest pain (principal); Z85.43 Personal history of malignant neoplasm of ovary
CPT/HCPCS: 71045; 71275; 80053; 83690; 83880; 84484; 85025; 86141; 93005; 96361; 96374; 96375; 99285; J2270; J2405